=== PATIENT | male | born 1950 | race Caucasian/White ===

== ENCOUNTER → 2016-10-10 | Outpatient (CLI) | payer MEDICARE, MEDICAID ==
[2016-03-12 13:15] VITALS: BP 184/86
[~2016-10-10] MED LIST: ASPI-630 PO; ASPI325T70 PO; BACL10TA PO; BUDE10.2 IH; CARI350T PO; CIPR500T94 PO; DONE5TAB7 PO; ESOM20CA PO; FLUT1DIS3 IH; HYDR-2161 PO; LAMO200T PO; LAMO5TB.2 PO; LEVO50TA5 PO; LORA0.5T PO; LOSA100T6 PO; LOSA1TAB16 PO; NEBI10TA3 PO; ONDA4TAB10 PO; OXYC1TAB9 PO; SIMV20TA3 PO; TAMS0.4C97 PO; VENL75CA PO; ZOLP5TAB5 PO
[2016-10-10 10:40] LABS: ALBUMIN 3.7 g/dL (3.4-5.0); ALBUMIN/GLOBULIN RATIO 0.8 (1.0-1.7); CALCIUM 9.2 mg/dL (8.5-10.1); CREATININE 1.4 mg/dL (0.7-1.3); GFR 50.7; POTASSIUM 4.4 mmol/L (3.5-5.1); TOTAL BILIRUBIN 0.4 mg/dL (0.2-1.0); TOTAL PROTEIN 8.2 g/dL (6.4-8.2)
== END | disposition home or self-care (01) ==
LOC: LAB 09:52
PROVIDERS: ATTEND Nurse Practitioner
DX: E78.5 Hyperlipidemia, unspecified (principal)
CPT/HCPCS: 36415; 80053; 80061

== ENCOUNTER 2016-11-01 03:37 | Observation (INO) | payer MEDICARE, OTHER ==
[~2016-11-01] VITALS: Ht 170.2 cm; Wt 88.1 kg
[2016-11-01] MEDS ORDERED: 0.9 % SODIUM CHLORIDE 10 ML DISP.SYRIN. IV PRN (03:45)
[2016-11-01] MEDS: HYDROmorphone PF 1 MG/ML DISP.SYRIN IV/SQ PRN ×2 (03:50→04:50)
--- NOTE | 2016-11-01 03:53 | PHYS DOC ---
Past History Past Medical History: CAD, Constipation, Coagulopathy, High Cholesterol, Hypertension, Other Past Surgical History: Cholecystectomy, Other Smoking: Greater than 1 pack/day Alcohol Use: None Drug Use: None Adult General Chief Complaint Chief Complaint: chest pain [facility] HPI Patient is a pleasant 66-year-old male with history of heart disease, prior pacemaker placement, hypertension, hyperlipidemia, hiatal hernia, esophageal reflux, and questionable hx of diabetes who presents with chest pain that began 8 PM yesterday. Patient's chest pain began while at rest about 8 hours prior to arrival patient's chest pain is intermittent giving his chest pressure on the left chest with no radiation to the neck shoulder back. He denies any shortness of breath, denies any nausea, denies any vomiting, denies any fevers, chills, URI symptoms or other complaints. The chest pain is worse with exertion but is improved with nitroglycerin and aspirin. He received both of those in route by EMS prior to arrival. Chest pain initially was 8 out of 10 is presently a 6 out of 10 with nitroglycerin and aspirin in route. Patient denies any trauma, travel , recent antibiotics, he has had a series of chest pain like this in the past and was told that it was because his pacemaker was not functioning well. He actually was the pacemaker removed because he believes is part of his problem. Patient is somewhat upset and angry and has been seen by EMS earlier this week for similar presentations but denied transportation to the hospital. The symptoms seem to be increasing in frequency and duration. Patient is somewhat of a difficult historian. Differential diagnosis for chest pain: Pericarditis, myocarditis, endocarditis, pneumothorax, pneumonia, aortic dissection, esophageal spasm, esophagitis, peptic ulcer disease, acute coronary syndrome, mediastinitis, Boerhaave syndrome , musculoskeletal chest wall pain, costochondritis, intercostal strain, rib fracture, pulmonary contusion, pneumonitis, pleural effusion, pericardial effusion, pericardial tamponode, and pleurisy. On arrival given his history patient live in EKG, chest x-ray, appropriate cardiac workup completed. Review of Systems Review of Systems Constitutional: Denies fever or chills [] Eyes: Denies change in visual acuity, redness, or eye pain [] HENT: Denies nasal congestion or sore throat [] Respiratory: Denies cough or shortness of breath [] Cardiovascular: No additional information not addressed in HPI [] GI: Denies abdominal pain, nausea, vomiting, bloody stools or diarrhea [] : Denies dysuria or hematuria [] Musculoskeletal: Denies back pain or joint pain [] Integument: Denies rash or skin lesions [] Neurologic: Denies headache, focal weakness or sensory changes [] Endocrine: Denies polyuria or polydipsia [] Current Medications Current Medications Current Medications Medications (Trade) Dose Ordered Sig/Linsey Start Time Stop Time Status Last Admin Dose Admin Hydromorphone HCl (Dilaudid) 1 mg PRN Q15MIN PRN 11/01/16 03:45 11/02/16 03:44 UNV Lorazepam (Ativan) 1 mg 1X ONCE 11/01/16 03:45 11/01/16 03:46 UNV Sodium Chloride (Normal Saline Flush) 10 ml QSHIFT PRN 11/01/16 03:45 UNV Allergies Allergies Allergies Coded Allergies Type Severity Reaction Last Updated Verified prednisone Allergy Intermediate "Goes crazy." 09/22/13 Yes lisinopril Adverse Reaction Intermediate COUGH 11/13/15 Yes Physical Exam Physical Exam Impression vital signs are reviewed hypertension noted Constitutional: Mildly obese male nontoxic nondiaphoretic mildly tachypnea but grabbing his chest wall complaining of chest pain underneath her left breast. HENT: Normocephalic, atraumatic, bilateral external ears normal, dry mucous membranes with no oral exudates. Eyes: PERRLA, EOMI, conjunctiva normal, no discharge. [] Neck: Normal range of motion, no tenderness, supple, no stridor. [] Cardiovascular:Heart rate regular rhythm, no murmur [] Lungs & Thorax: Bilateral breath sounds clear to auscultation [] Abdomen: Bowel sounds normal, soft, no tenderness, no masses, no pulsatile masses. [] Skin: Warm, dry, no erythema, no rash. [] Back: No tenderness, no CVA tenderness. [] Extremities: No tenderness, no cyanosis, no clubbing, ROM intact, no edema. [] Neurologic: Alert and oriented X 3, normal motor function, normal sensory function, no focal deficits noted. [] Psychologic: He seems somewhat angry and upset patient very limited historian Current Patient Data Vital Signs Vital Signs Date Time Temp Pulse Resp B/P (MAP) Pulse Ox O2 Delivery O2 Flow Rate FiO2 6/8/17 04:08 61 18 137/69 (91) 96 Room Air 11/01/16 03:37 97.9 EKG EKG EKG timed 3:44 AM 11/01/2016 demonstrates a heart rate of 68 normal sinus rhythm with left axis deviation patient has a Q-wave in the anterior leads and leads V1 and V2 no ST segment elevation consistent with acute coronary event. By Dr. Lozano. [] Radiology/Procedures Radiology/Procedures [] Chest x-ray timed 0 3:41 AM 11/01/2016 demonstrates mild cardiomegaly pacemaker placement intact lead wires into his heart. There is mild elevation of the right hemidiaphragm no evidence of pleural effusion or infiltrate, pneumothorax. Chest x-ray read by Dr. Lozano Course & Med Decision Making Course & Med Decision Making Pertinent Labs and Imaging studies reviewed. (See chart for details) Upon arrival chest pain differential and workup was initiated approximately 3: 44 AM. Patient was given nitrates and aspirin prior to arrival given Dilaudid and Ativan and fluids here with antiemetics. 4:15 AM patient feels markedly better now more calm or history is being provided by at the bedside. She admits he has had a history of chest pain like this in the past was seen at 2 AM yesterday for similar presentation but declined coming in. Pain is become more frequent and more severe It is improved with nitrates and aspirin, Zofran, Dilaudid and Ativan. 4:23 AM patient's troponin is 0.0017, white blood cell count is mildly elevated 11,000 chest x-ray is back demonstrate a no occult infiltrate no cardiomegaly no obvious signs of congestive heart failure. EKG timed and dated earlier this morning was reviewed no cold changes Q waves in [place] but noted a prior EKG. 4:33 AM patient admitted to the hospital for rule out [place] protocol as he did not want to [facility]. I think he is low enough risk that he can stay here to be seen by her wellness instructor in the morning provided he does not have an elevated troponin it is on the MOHS SURGEON this time. We will attempt to keep patient pain free using antianxiety medications, nitrates and morphine derivatives and fluids. Patient's family members at the bedside are agreeable with this plan. Differential diagnosis for chest pain: Pericarditis, myocarditis, endocarditis, pneumothorax, pneumonia, aortic dissection, esophageal spasm, esophagitis, peptic ulcer disease, acute coronary syndrome, mediastinitis, Boerhaave syndrome , musculoskeletal chest wall pain, costochondritis, intercostal strain, rib fracture, pulmonary contusion, pneumonitis, pleural effusion, pericardial effusion, pericardial tamponode, and pleurisy. Was considered during the evaluation of this patient Impression: Chest pain of unclear etiology, anxiety, dementia Disposition: Admission to the hospital internal medicine evaluation as well as cardiology evaluation. [] Dragon Disclaimer Dragon Disclaimer This chart was dictated in whole or in part using Voice Recognition software in a busy, high-work load, and often noisy Emergency Department environment. It may contain unintended and wholly unrecognized errors or omissions. Departure Departure: Impression: Primary Impression: Chest pain Additional Impressions: Hypertension History of pacemaker Disposition: ADMITTED INPATIENT Admitting Physician: Shagufta Lopez Condition: GUARDED Referrals: DINAH MULLEN MD (PCP) Problem Qualifiers JACQUELYN LOZANO MD Nov 01, 2016 03:53
--- NOTE | 2016-11-01 04:06 | EKG ---
[address] [address] Test Date: 2016-11-01 Test Time: 03:44:10 Pat Name: [facility] Department: Room: Gender: M Title Investigator: : 1950 Requested By: JACQUELYN LOZANO Order Number: [id number] Reading MD: Andrea Olivas Measurements Intervals [place] Rate: 68 P: 46 ND: 170 QRS: -12 QRSD: 96 T: 62 QT: 398 QTc: 428 Interpretive Statements SINUS RHYTHM ANTEROSEPTAL INFARCT - PRIOR Electronically Signed On 11-06-2016 8:22:00 CDT by Andrea Olivas
[2016-11-01 04:08] LABS: BASO # 0.1 x10^3/uL (0.0-0.2); BASO % 1 % (0-3); EOS # 0.3 x10^3/uL (0.0-0.7); EOS % 3 % (0-3); HEMATOCRIT 38.7 % (39.0-53.0); HEMOGLOBIN 13.1 g/dL (13.0-17.5); LYMPH # 2.7 x10^3/uL (1.0-4.8); LYMPH % 24 % (24-48); MEAN CORPUSCULAR HEMOGLOBIN 29 pg (25-35); MEAN CORPUSCULAR HGB CONC 34 g/dL (31-37); MEAN CORPUSCULAR VOLUME 86 fL (79-100); MONO # 0.9 x10^3/uL (0.0-1.1); MONO % 8 % (0-9); NEUT # 7.2 x10^3uL (1.8-7.7); NEUT % 65 % (31-73); PLATELET COUNT 198 x10^3/uL (140-400); RED BLOOD COUNT 4.51 x10^6/uL (4.30-5.70); RED CELL DISTRIBUTION WIDTH 13.2 % (11.5-14.5); WHITE BLOOD COUNT 11.1 x10^3/uL (4.0-11.0)
[2016-11-01] MEDS ORDERED: LORazepam 2 MG/ML VIAL IV ONE (04:15)
[2016-11-01] MEDS ORDERED: IV NORMAL SALINE 1,000ML 1,000 ML IV SCH ×2 (04:15→04:29)
[2016-11-01 04:23] LABS: ALBUMIN 3.3 g/dL (3.4-5.0); ALBUMIN/GLOBULIN RATIO 0.8 (1.0-1.7); CALCIUM 8.8 mg/dL (8.5-10.1); CREATININE 1.2 mg/dL (0.7-1.3); GFR 60.6; MAGNESIUM 1.9 mg/dL (1.8-2.4); POTASSIUM 3.4 mmol/L (3.5-5.1); TOTAL BILIRUBIN 0.2 mg/dL (0.2-1.0); TOTAL PROTEIN 7.3 g/dL (6.4-8.2)
[2016-11-01] MEDS ORDERED: ONDANSETRON PF 4 MG/2 ML VIAL. IV PRN (04:30)
[2016-11-01] MEDS ORDERED: HYDROmorphone PF 1 MG/ML DISP.SYRIN IV PRN (04:30)
[2016-11-01] MEDS ORDERED: ACETAMINOPHEN 325 MG TABLET PO PRN (04:30)
[2016-11-01] MEDS ORDERED: NITROGLYCERIN SUBLINGUAL 0.4 MG BOTTLE OF 25. SL PRN (04:30)
--- NOTE | 2016-11-01 05:05 | ACF ---
Admission Criteria Forms CHEST PAIN Clinical Indications for Admission to Inpatient Care (Place 'X' for any and all applicable criteria): Admission is indicated for chest pain and ANY ONE of the following(1)(2)(3)(4)(5 ): [ ]I. Angina with acute coronary syndrome (Also use Myocardial Infarction or Angina guideline) [ ]II. Hemodynamic instability [ ]III. Angina needing acute intervention as indicated by ALL of the following( 11)(12): [ ]a) Unstable angina is present as indicated by angina that is ANY ONE of the following: [ ]i) New onset [ ]ii) Nocturnal [ ]iii) Prolonged at rest [ ]iv) Progressive [ ]b) Angina warrants acute intervention as indicated by ANY ONE of the following: [ ]i) Recurrent angina (e.g, not responding as previously to treatment) [ ]ii) Angina at rest or with low-level activities despite initial medical therapy [ ]iii) New or presumably new ST-segment depression on ECG [ ]iv) Signs or symptoms of heart failure (eg, dyspnea, pulmonary edema) [ ]v) New or worsening mitral regurgitation [ ]vi) Hemodynamic instability [ ]vii) Dangerous arrhythmia (eg, sustained ventricular tachycardia) [ ]viii) History of percutaneous coronary intervention within 6 months [ ]ix) History of coronary artery bypass graft surgery [ ]x) JOCELYNE risk score of 2 or greater[A] [ ]xi) History of Diabetes(14) [ ]xii) High-risk cardiac ischemia findings on noninvasive testing (e.g, echocardiogram, treadmill testing, nuclear scan) [ ]xiii) Chronic renal insufficiency (ie, estimated GFR less than 60 mL/min/1.732m) [ ]xiv) Left ventricular ejection fraction less than 40% [ ]IV. Evidence of OK (eg, cardiac biomarkers positive, ST-segment elevation on ECG) also use Myocardial Infarction Criteria Form. [ ]V. Pulmonary edema [ ]. Respiratory distress [ ]VII. Chest pain indicative of serious diagnosis other than coronary artery disease (eg, aortic dissection) [ ]VIII. Contraindications and/or Inappropriate clinical situations for Observational Care in patients with Chest Pain, when ANY ONE of the following is required: [ ]a) Patient with risk factor for pulmonary embolism, acute coronary syndrome and myocardial infarction (18) [ ]b) Patient with Pulmonary embolism require an average LOS of 4.3 days, therefore emergency department observation management is inappropriate 18,23 [ ]c) Painful condition/s in the elderly, have the highest rate of recidivism after emergency department observation management (10.8%) 20,21,22 [ ]d) Elevated cardiac biomarker requires intensive and exhaustive care (19) [ ]IX. General contraindications and/or Inappropriate clinical situations for Observational Care in patients with Chest Pain, when ANY ONE of the following is required: [ ]a) Prediction of prolongation of LOS based on ANY ONE of the following may be considered as a contraindication for observational care 2, 3, 4, 5, 6, 7, 8, 9, 10, 11 [ ]i) Age > 65 yrs. [ ]ii) Patient arriving by ambulance [ ]iii) Patient with high acuity [ ]iv) Patient requiring vital sign monitoring [ ]v) Patient on IV medication [ ]b) Systolic blood pressures 180mmHg 3,12 [ ]c) Patient with altered mental status including delirium and other alteration of consciousness, (3) [ ]d) Patient whose discharge disposition will be to a senior care home or rehabilitation home should not be managed in Emergency Department Observation Unit. CMS rule requires 3 days hospital stay before such placement. 3,13 [ ]e) Patient with failure to thrive due to broad array of etiologies 3,16,17 [ ]f) Inability to ambulate 3,14 Extended stay beyond goal length of stay may be needed for (1)(28): [ ]a) Specific condition diagnosed after evaluation (eg, pulmonary embolism, aortic dissection) [ ]b) Unstable angina [ ]c) Continued suspicion of acute coronary syndrome with inability to complete needed cardiac evaluation (eg, patient clinically unable to undergo stress testing) [ ]d) Myocardial infarction (Contents from ANGINA and CHEST PAIN clinical indications for admission to inpatient care have been integrated in this form) The original [employer] content created by [employer] has been revised. The portions of the content which have been revised are identified through the use of italic text or in bold, and [employer] has neither reviewed nor approved the modified material. All other unmodified content is copyright [employer]. Please see references footnoted in the original [employer] edition 2016 SIMON JOHNSON Nov 01, 2016 05:05
[2016-11-01 05:38] VITALS: BP 151/69
--- NOTE | 2016-11-01 08:03 | ACF ---
Admission Criteria Forms PAIN MANAGEMENT GR Clinical Indications for Admission to Inpatient Care (Place 'X' for any and all applicable criteria): Hospital admission is needed for appropriate care of the patient because of 1 or more of the following are present (1)(2)(3)(4)(5): [X]I. Severe pain requiring acute inpatient management as indicated by 1 or more of the following (2)(5)(10): [X]a) Continuous or frequent (eg, every 2 to 4 hours) parenteral analgesics required [A] [ ]b) Necessity (ie, alternative approaches not effective) for analgesic regimen that can only be performed or initiated in inpatient setting [ ]II. Pain causing debilitation to the point of inability to function or be supported at any other level of care [ ]III. Severe side effects from pain medications as indicated by ANY ONE of the following (12)(13)(14)(15): [ ]a) Uncontrollable seizures [ ]b) Cardiac arrhythmias of immediate concern [ ]c) Dehydration that is severe or persistent [ ]d) Vomiting that is severe or persistent [ ]e) Altered mental status that is severe or persistent [ ]f) Obstipation with inadequate GI function to maintain nutrition The original [employer] content created by [employer] has been revised. The portions of the content which have been revised are identified through the use of italic text or in bold, and [employer] has neither reviewed nor approved the modified material. All other unmodified content is copyright [employer]. Please see references footnoted in the original [employer] edition 2016 Admission Criteria Met?: Yes SIMON JOHNSON Nov 01, 2016 08:03
--- NOTE | 2016-11-01 08:18 | RAD ---
Portable chest, 11/01/2016: History: Chest pain, shortness of breath Comparison is made to a study from 03/19/2016. The left-sided transvenous pacemaker remains in place with 2 leads extending in the right heart. Spinal stimulator leads extend into the thoracic spinal canal. The heart size and pulmonary vascularity are normal. The lungs are clear. There is no evidence of pleural fluid. IMPRESSION: No acute cardiopulmonary abnormality is detected.
--- NOTE | 2016-11-01 09:50 | PDOC2 ---
JANNETH MONTES DE OCA PRINCIPAL LIBRARIAN 11/01/16 0949: CONSULT Date of Admission DATE: 11/01/16 TIME: 09:33 Reason for Consult: Chest pain Problem List Problems Medical Problems: (1) Chest pain Status: Acute (2) History of pacemaker Status: Acute (3) Hypertension Status: Acute History of Present Illness This is a pleasant 66 year old white male that presented to the ER with chief complaint of chest pain. He is known to our service. He has a history of sick sinus syndrome status post dual chamber pacemaker on 07/28/2013, small vessel coronary artery disease, hypertension, previous strokes, hyperlipidemia, moderate carotid artery disease, gastroesophageal reflux disease, and tobacco abuse. Pain started two nights ago at 8pm when he became frustrated with [place] home monitor not working. Has been constant since that time with different levels of intensity. Not related to activity and he is unsure what makes it better or worse. Associated with tenderness at area, soa but no nausea, vomiting or diaphoresis. When he present to er BP was 210 systolic and he can not remember if he missed his medication. He did try Nitro at home on two different occasions but did not think it helped. ROS - Review of 10 organ systems is negative except as above Allergies PREDNISONE: Other (Severe) Medications Advair Diskus 250 mcg-50 mcg/dose powder for inhalationone puff twice daily aspirin 81 mg tablet,delayed releaseTake 1 tablet(s) every day by oral route., start 03/27/2016 Atorvastatin 80 mg tabletone tablet by mouth daily at bedtime Bystolic 10 mg tabletTake 1 tablet(s) every day by oral route. Chantix 1 mg tabletTake 1 tablet(s) twice a day by oral route. clopidogrel 75 mg tabletone tablet by mouth daily diazePAM 10 mg tablet irbesartan 300 mg tabletTake 1 tablet(s) every day by oral route. lamoTRIgine 200 mg tabletone tablet by mouth daily nitroglycerin 0.4 mg sublingual tablet as needed for chest pain omeprazole 40 mg capsule,delayed release oxyCODONE 5 mg tablet1 1/2 tabs daily prochlorperazine maleate 10 mg tablet Ranexa 500 mg tablet,extended releaseone tablet by mouth twice daily Soma 350 mg tabletTake 1 tablet(s) 4 times a day by oral route. Symbicort 160 mcg-4.5 mcg/actuation HFA aerosol inhalertwice daily tamsulosin 0.4 mg capsule2 capsules once daily venlafaxine ER 75 mg capsule,extended release 24 hrone tablet by mouth daily Zetia 10 mg tabletTAKE ONE TABLET BY MOUTH ONCE A DAY. zolpidem 10 mg tabletTake 1 tablet(s) every day by oral route at bedtime for 30 days. Family History Father - Cirrhosis of liver ( age: 61) - Atherosclerosis Mother - Myocardial infarction ( age: 82) Social History Reviewed Social History Cardiology Occupation: Disabled Marital status: Exercise level: Moderate (Notes: [facility] for physical therapy) Smoking Status: Former smoker Smoker (05/30 PPD) Tobacco-years of use: 50 Alcohol intake: None Medical/Surgical History Carotid Disease: Y Coronary Artery Disease: Y High Cholesterol: Y Hypertension: Y Pacemaker: Y Chronic Kidney Disease: Y TIA/Stroke: Y Physical Exam Patient is a 66-year-old male. GENERAL: This is a well developed, well nourished male. No apparent distress. SKIN: Warm and dry with normal skin turgor. Negative for pallor. No lesions or rashes noted. EYES: Conjunctiva are clear. Extraocular movements are intact. No xanthelasma. HEAD AND NECK: Oral mucosa is moist. There is no cyanosis. Neck is supple. Jugular venous pressure is flat. Carotid pulses are 2/2 bilaterally. No carotid bruits. There is no obvious thyromegaly. HEART: Regular rate and rhythm. Normal S1 and S2. No S3. No S4. No significant murmur. No rub. PMI is not displaced. LUNGS: Effort is good. There is symmetric expansion bilaterally. Clear to auscultation bilaterally. No wheezes. No crackles. No rhonchi. ABDOMEN: Normal active bowel sounds. Soft. Nontender. EXTREMITIES: No clubbing. No cyanosis. No edema of lower extremities. Palpable pedal pulses. MUSCULOSKELETAL: No kyphosis. No scoliosis. No localized tenderness or stiffness. Gait appears normal. NEUROLOGIC: Alert and oriented times three. Cranial nerves III-XII are grossly intact. Good motor tone and strength in the upper and lower extremities bilaterally. PSYCHOLOGIC: This is a pleasant patient with a normal affect. Procedure Documentation CARDIAC CATHETERIZATION IMPRESSION (09/27/2015): 1. Small diffusely diseased coronaries without any focal stenosis of severity other than in the small nondominant right ventricular branch. 2. Elevated left ventricular end-diastolic pressures. 3. Systemic hypertension. ECHOCARDIOGRAM IMPRESSION (09/27/2015): There is normal left ventricular systolic function. The estimated ejection fraction is 60-65%. There is borderline concentric hypertrophy. There is trace mitral regurgitation. There is trace to mild tricuspid regurgitation. The pulmonary artery pressure is estimated at 25 mmHg. ULTRASOUND CAROTID DUPLEX DOPPLER (09/26/2015): 50-69% stenosis of the right distal common carotid artery prior to the bulb due to intimal thickening and mixed plaque. No other hemodynamically significant stenosis with less than 50% stenosis in the other carotid arteries. NUCLEAR STRESS TEST IMPRESSION (10/08/2014): Normal myocardial perfusion scan. Normal left ventricular systolic function. Ejection fraction: 55%. There is no stress induced left ventricular dilatation or increase in lung to heart ratio. There were no significant stress induced ECG changes. There were no arrhythmias. There was chest pressure during Lexiscan injection. ECHOCARDIOGRAM IMPRESSION (10/08/2014): There is mild concentric left ventricular hypertrophy. The left ventricular systolic function is normal with an estimated ejection fraction of 74%. There is evidence of decreased diastolic compliance of the left ventricle consistent with mild diastolic dysfunction. The inferior vena cava is dilated but does respond normally to respiration, which is consistent with mildly elevated right atrial pressure. There is mild to moderate mitral regurgitation There is moderate tricuspid regurgitation. The estimated pulmonary artery systolic pressure is 43 mmHg, consistent with mild pulmonary hypertension. 30 DAY EVENT RECORDER (07/16/2013): 1. The patient has sick sinus syndrome. He had a 3.7-second pause at 1:30 p.m. on July 11, 2013. 2. Because of his recurrent syncopal episodes, the patient qualifies for a permanent pacemaker placement. 3. This was discussed with Dr. Elaine Edouard, his primary brim plater and he will schedule this procedure. Assessment / Plan Chest pain - 1st troponin is negative. If his next comes back negative can discharge home for OP stress test and echocardiogram. His pain is atypical and he had a catheterization in 09/2015 that showed small vessel disease without any significant stenosis. Will add lidocaine patch and continue PPI Coronary artery disease - He has small vessel coronary disease by cardiac catheterization 09/2015. Continue aspirin, beta patrick, Ranexa and statin. We will continue optimal medical therapy. Benign Essential Hypertension, uncontrolled. Improving with resuming his home medication. Hypercholesterolemia . His goal LDL is < 100 mg/dL. Continue Zetia and Lipitor. Sick sinus syndrome, status post pacemaker. PM rep is coming to fix [place] home monitoring box and will check his pacemaker Carotid disease, right: He has a carotid bruit and has mild to moderate carotid plaquing by sonogram 09/2015. He is on a statin. 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 GFR now 60 - Stop fluids Previous stroke: He had left arm weakness an hour after his cardiac catheterization. He received TPA with some improvement in his weakness. Continue Plavix Current Medications Current Medications Lorazepam (Ativan) 1 mg 1X ONCE IV Last administered on 11/01/16 03:50; Start 11/01/16 at 04:15; Stop 11/01/16 at 04:16; Status DC Hydromorphone HCl (Dilaudid) 1 mg PRN Q15MIN PRN IV/SQ PAIN GREATER THAN 3/10 Last administered on 11/01/16 04:50; Start 11/01/16 at 03:45; Stop 11/02/16 at 03: 44 Sodium Chloride 1,000 ml @ 1,000 mls/hr Q1H IV Last administered on 11/01/16 03:50; Start 11/01/16 at 04:15; Stop 11/01/16 at 05:14; Status DC Sodium Chloride (Normal Saline Flush) 10 ml QSHIFT PRN IV AFTER MEDS AND BLOOD DRAWS Last administered on 11/01/16 03:45; Start 11/01/16 at 03:45 Ondansetron HCl (Zofran) 4 mg PRN Q4HRS PRN IV NAUSEA/VOMITING Last administered on 11/01/16 05:20; Start 11/01/16 at 04:30; Stop 11/02/16 at 04:29 Sodium Chloride 1,000 ml @ 100 mls/hr Q10H IV Last administered on 11/01/16 05 :22; Start 11/01/16 at 04:29; Stop 11/02/16 at 04:28 Acetaminophen (Tylenol) 650 mg PRN Q4HRS PRN PO FEVER; Start 11/01/16 at 04:30; Stop 11/02/16 at 04:29 Nitroglycerin (Nitrostat) 0.4 mg PRN Q5MIN PRN SL CHEST PAIN; Start 11/01/16 at 04:30; Stop 11/02/16 at 04:29 Hydromorphone HCl (Dilaudid) 1 mg PRN Q2HR PRN IV SEVERE PAIN; Start 11/01/16 at 04:30; Stop 11/02/16 at 04:29 Active Scripts Active Cipro (Ciprofloxacin Hcl) 500 Mg Tablet 1 Tab PO BID Flomax (Tamsulosin Hcl) 0.4 Mg Cap.er.24h 1 Cap PO DAILY Reported Baclofen 10 Mg Tablet 10 Mg PO TID Losartan-Hctz 50-12.5 Mg Tab (Losartan/Hydrochlorothiazide) 1 Each Tablet 1 Each PO DAILY Losartan-Hctz 50-12.5 Mg Tab (Losartan/Hydrochlorothiazide) 1 Each Tablet 1 Each PO Advair 250-50 Diskus (Fluticasone/Salmeterol) 1 Each Disk.w.dev 1 Each IH BID Symbicort 160-4.5 Mcg Inhaler (Budesonide/Formoterol Fumarate) 10.2 Gm Hfa.aer.ad 2 Puff IH BID Zofran Odt (Ondansetron) 4 Mg Tab.rapdis 4 Mg PO PRN Oxycodone-Acetaminophen 10-325 (Oxycodone Hcl/Acetaminophen) 1 Each Tablet 1 Each PO PRN Lamotrigine 200 Mg Tablet 200 Mg PO DAILY Bystolic (Nebivolol Hcl) 10 Mg Tablet 10 Mg PO DAILY Nexium Capsule (Esomeprazole Magnesium) 20 Mg Capsule.dr 20 Mg PO BID Zolpidem Tartrate 5 Mg Tablet 5 Mg PO QHS PRN Donepezil Hcl 5 Mg Tablet 5 Mg PO DAILY Hydrocodone-Apap 10-300 (Hydrocodone Bit/Acetaminophen) 1 Each Tablet 1 Each PO Nexium Capsule (Esomeprazole Magnesium) 20 Mg Capsule.dr 20 Mg PO Aspirin Buffered 325 Mg Tab (Aspirin/Calcium Carbonate/Mag) 325 Mg Tablet 325 Mg PO Aspirin 81 Mg Tab.chew 81 Mg PO Soma (Carisoprodol) 350 Mg Tablet 350 Mg PO QID Simvastatin 20 Mg Tablet 40 Mg PO HS Levothyroxine Sodium 50 Mcg Tablet 25 Mcg PO DAILY Lorazepam 0.5 Mg Tablet 1 Mg PO TID Effexor Xr (Venlafaxine Hcl) 75 Mg Cap.er.24h 75 Mg PO DAILY Allergies: Coded Allergies: prednisone (Verified Allergy, Intermediate, "Goes crazy.", 09/22/13) lisinopril (Verified Adverse Reaction, Intermediate, COUGH, 11/13/15) VITALS Vital Signs Date Time Temp Pulse Resp B/P (MAP) Pulse Ox O2 Delivery O2 Flow Rate FiO2 11/01/16 06:21 20 Room Air 11/01/16 05:38 97.6 60 151/69 (96) 99 Labs Laboratory Tests Test 11/01/16 03:45 White Blood Count 11.1 x10^3/uL (4.0-11.0) Red Blood Count 4.51 x10^6/uL (4.30-5.70) Hemoglobin 13.1 g/dL (13.0-17.5) Hematocrit 38.7 % (39.0-53.0) Mean Corpuscular Volume 86 fL (79-100) Mean Corpuscular Hemoglobin 29 pg (25-35) Mean Corpuscular Hemoglobin Concent 34 g/dL (31-37) Red Cell Distribution Width 13.2 % (11.5-14.5) Platelet Count 198 x10^3/uL (140-400) Neutrophils (%) (Auto) 65 % (31-73) Lymphocytes (%) (Auto) 24 % (24-48) Monocytes (%) (Auto) 8 % (0-9) Eosinophils (%) (Auto) 3 % (0-3) Basophils (%) (Auto) 1 % (0-3) Neutrophils # (Auto) 7.2 x10^3uL (1.8-7.7) Lymphocytes # (Auto) 2.7 x10^3/uL (1.0-4.8) Monocytes # (Auto) 0.9 x10^3/uL (0.0-1.1) Eosinophils # (Auto) 0.3 x10^3/uL (0.0-0.7) Basophils # (Auto) 0.1 x10^3/uL (0.0-0.2) Sodium Level 141 mmol/L (136-145) Potassium Level 3.4 mmol/L (3.5-5.1) Chloride Level 105 mmol/L (98-107) Carbon Dioxide Level 28 mmol/L (21-32) Anion Gap 8 (6-14) Blood Urea Nitrogen 17 mg/dL (8-26) Creatinine 1.2 mg/dL (0.7-1.3) Estimated GFR (Cockcroft-Gault) 60.6 BUN/Creatinine Ratio 14 (6-20) Glucose Level 96 mg/dL (70-99) Calcium Level 8.8 mg/dL (8.5-10.1) Magnesium Level 1.9 mg/dL (1.8-2.4) Total Bilirubin 0.2 mg/dL (0.2-1.0) Aspartate Amino Transf (AST/SGOT) 23 U/L (15-37) Alanine Aminotransferase (ALT/SGPT) 31 U/L (16-63) Alkaline Phosphatase 199 U/L (46-116) Creatine Kinase 89 U/L (39-308) Creatine Kinase MB (Mass) 1.3 ng/mL (0.0-3.6) Creatine Kinase MB Relative Index 1.5 % (0-4) Troponin I Quantitative < 0.017 ng/mL (0-0.055) RR-Hhx-E-Type Natriuretic Peptide 616 pg/mL (0-124) Total Protein 7.3 g/dL (6.4-8.2) Albumin 3.3 g/dL (3.4-5.0) Albumin/Globulin Ratio 0.8 (1.0-1.7) Lipase 115 U/L (73-393) ELAINE EDOUARD Jr, MD 11/04/16 1151: CONSULT Allergies: Coded Allergies: prednisone (Verified Allergy, Intermediate, "Goes crazy.", 09/22/13) lisinopril (Verified Adverse Reaction, Intermediate, COUGH, 11/13/15) Assessment/Plan The patient was seen by Janneth Montes De Oca APRN and I have reviewed her findings and plan and agree with above. Due to staffing constraints, we did not have an attending available on this day to see the patient. Problems: JANNETH MONTES DE OCA APRN Nov 01, 2016 09:49 ELAINE EDOUARD Jr, MD Nov 04, 2016 11:51
[2016-11-01] MEDS ORDERED: PANTOPRAZOLE 40 MG TABLET. PO SCH (10:00)
[2016-11-01] MEDS: LIDOCAINE (700MG/PATCH) PATCH. TD SCH ×2 (10:00→10:03)
[2016-11-01] MEDS ORDERED: CLOP75TA PO (10:29)
[2016-11-01] MEDS ORDERED: VARE1TAB20 PO (10:29)
[2016-11-01] MEDS ORDERED: RANO500T2 PO (10:33)
[2016-11-01] MEDS ORDERED: PROC10TA PO (10:33)
[2016-11-01] MEDS ORDERED: FLUT1DIS3 IH (10:33)
[2016-11-01] MEDS ORDERED: EZET10TA18 PO (10:33)
[2016-11-01] MEDS ORDERED: NITR0.4T SL (10:33)
[2016-11-01] MEDS ORDERED: DIAZ10TA4 PO (10:33)
[2016-11-01 11:37] VITALS: BP 187/90
== END 2016-11-01 12:20 | disposition left against medical advice (07) ==
LOC: ER 03:37 → 1 SOUTH 04:29
PROVIDERS: ADMIT Internal Medicine; ATTEND Internal Medicine
DX: R07.89 Other chest pain (principal); I25.10 Atherosclerotic heart disease of native coronary artery without angina pectoris; E78.00 Pure hypercholesterolemia, unspecified; E78.5 Hyperlipidemia, unspecified; I65.29 Occlusion and stenosis of unspecified carotid artery; K21.9 Gastro-esophageal reflux disease without esophagitis; F17.210 Nicotine dependence, cigarettes, uncomplicated; F41.9 Anxiety disorder, unspecified; F03.90 Unspecified dementia, unspecified severity, without behavioral disturbance, psychotic disturbance, mood disturbance, and anxiety; I12.9 Hypertensive chronic kidney disease with stage 1 through stage 4 chronic kidney disease, or unspecified chronic kidney disease; N18.3 Chronic kidney disease, stage 3 (moderate); Z95.0 Presence of cardiac pacemaker; Z79.01 Long term (current) use of anticoagulants; Z79.899 Other long term (current) drug therapy; Z86.73 Personal history of transient ischemic attack (TIA), and cerebral infarction without residual deficits; Z82.49 Family history of ischemic heart disease and other diseases of the circulatory system
CPT/HCPCS: 36415; 71010; 80053; 82553; 83690; 83735; 83880; 84443; 84484; 85027; 93005; 96361; 96374; 96375; 96376; 99285; G0378; J1170; J2060; J2405; J7030; G0379

== ENCOUNTER → 2017-05-10 | Outpatient (CLI) | payer MEDICARE, OTHER ==
[~2017-05-10] MED LIST changes: +CLOP75TA PO; +DIAZ10TA4 PO; +EZET10TA18 PO; -LAMO200T PO; +LAMO200T2 PO; -LOSA1TAB16 PO; +LOSA1TAB19 PO; +NITR0.4T SL; +PROC10TA PO; +RANO500T2 PO; +VARE1TAB20 PO
--- NOTE | 2017-05-10 10:47 | RAD ---
Complete abdominal ultrasound 05/10/2017 Indication: Abdominal pain. Cirrhosis. Comparison study: CT of the abdomen and pelvis May 11, 2017. Discussion: Ultrasound evaluation of the abdomen was performed. Static images were submitted to PACS. The pancreas is essentially not visualized secondary overlying gas-filled bowel. Visualized portions of the aorta and IVC are grossly unremarkable. Gallbladder is surgically absent. The liver is grossly normal in size measuring 15.7 cm longitudinally. Liver is mildly hyperechoic throughout suggesting some degree of hepatic steatosis. No focal hepatic lesions are identified. Common bile is nondilated measuring 4 mm. The right kidney is normal appearance measuring 12.0 cm in length. Spleen is top normal in size measuring 11.5 cm longitudinally. Left kidney is small in size measuring 9.1 cm in length. No ascites is identified. Portal venous flow appears to be in the normal direction. Impression: 1. Possible hepatic steatosis. 2. Atrophic appearance of the left kidney. Similar findings noted on prior CT scan.
== END | disposition home or self-care (01) ==
LOC: US 10:00
PROVIDERS: ATTEND Internal Medicine Gastroenterology
DX: K74.60 Unspecified cirrhosis of liver (principal); Z90.49 Acquired absence of other specified parts of digestive tract; Z87.891 Personal history of nicotine dependence
CPT/HCPCS: 76700

== ENCOUNTER 2017-09-12 16:15 | Emergency (ER) | payer MEDICARE, OTHER ==
[~2017-09-12] VITALS: Ht 170.2 cm; Wt 82.1 kg
--- NOTE | 2017-09-12 17:22 | EKG ---
[address] [address] Test Date: 2017-09-12 Test Time: 17:18:14 Pat Name: DEISY TURNER Department: Room: Gender: M Box Attacher: : 1950 Requested By: BEBO FLOYD Order Number: [id number] Reading MD: Measurements Intervals Justice Rate: 60 P: 0 CO: 214 QRS: -5 QRSD: 72 T: 30 QT: 402 QTc: 406 Interpretive Statements SINUS RHYTHM LEFTWARD AXIS NO SPECIFIC ECG ABNORMALITIES RI6.01 Compared to ECG 11/01/2016 03:44:10 Left-axis deviation now present Myocardial infarct finding no longer present
--- NOTE | 2017-09-12 17:46 | PHYS DOC ---
Past History Past Medical History: Anxiety, CAD, Constipation, Coagulopathy, GERD, High Cholesterol, Hypertension, Pneumonia, Stroke, Other Past Surgical History: Cholecystectomy, Pacemaker, Other Smoking: Greater than 1 pack/day Additional Smoking Information: QUIT 2 YEARS AGO. Alcohol Use: None Drug Use: None Adult General Chief Complaint Chief Complaint: PSYCH EVALUATION HPI HPI 67-year-old male patient brought in by his because of chronic abdominal pain and needs for psychiatric evaluation. Patient and his stated that he has had chronic abdominal pain for more than one year but he was able to figure out what's going on. Patient was seen by primary care physician because of psychiatric evaluation because he was not taking his medication and does not eat and drink for the last several days. Patient primary care physician states he had narcotic seeking abdominal pain previously. Patient denies suicidal and homicidal ideation. Review of Systems Review of Systems Constitutional: Denies fever or chills [] Eyes: Denies change in visual acuity, redness, or eye pain [] HENT: Denies nasal congestion or sore throat [] Respiratory: Denies cough or shortness of breath [] Cardiovascular: No additional information not addressed in HPI [] GI: Reports abdominal pain, nausea, denies vomiting, bloody stools or diarrhea [ ] : Denies dysuria or hematuria [] Musculoskeletal: Denies back pain or joint pain [] Integument: Denies rash or skin lesions [] Neurologic: Denies headache, focal weakness or sensory changes [] Endocrine: Denies polyuria or polydipsia [] All other systems were reviewed and found to be within normal limits, except as documented in this note. Allergies Allergies Allergies Coded Allergies Type Severity Reaction Last Updated Verified prednisone Allergy Intermediate "Goes crazy." 09/22/13 Yes lisinopril Adverse Reaction Intermediate COUGH 11/13/15 Yes Physical Exam Physical Exam Constitutional: Poor hygiene, no acute distress, non-toxic appearance. [] HENT: Normocephalic, atraumatic Eyes: PERRLA, EOMI, conjunctiva normal, no discharge. [] Neck: Normal range of motion, no tenderness, supple, no stridor. [] Cardiovascular:Heart rate regular rhythm, no murmur [] Lungs & Thorax: Bilateral breath sounds clear to auscultation [] Abdomen: Bowel sounds normal, soft, no tenderness, no masses, no pulsatile masses. [] Skin: Warm, dry, no erythema, no rash. [] Back: No tenderness, no CVA tenderness. [] Extremities: No tenderness, no cyanosis, no clubbing, ROM intact, no edema. [] Neurologic: Alert and oriented X 3, normal motor function, normal sensory function, no focal deficits noted. [] Psychologic: Affect normal, judgement normal, mood normal. [] Current Patient Data Vital Signs Vital Signs Date Time Temp Pulse Resp B/P (MAP) Pulse Ox O2 Delivery O2 Flow Rate FiO2 09/12/17 16:41 98.3 67 20 99 Room Air EKG EKG EKG interpreted by me. EKG at 1718 showed normal sinus rhythm at rate of 60, no acute ST and T wave abnormality, leftward axis,[] Radiology/Procedures Radiology/Procedures [] Course & Med Decision Making Course & Med Decision Making Pertinent Labs are pending. Patient care transferred to Dr. Young at 1800.[] ELIZA Huynh attending note Dr. Sunny KAY M.D. attending Note Dr. Sunny Young Care assumed by me at 6 PM to follow labs and results of tele-psychiatric evaluation and disposition patient. Laboratory workup unremarkable. Patient stable alert communicative. Patient had no evidence of abdominal pain and was walking around the emergency department in what appeared to be complete comfort physically. Multiple attempts were made to connect via tele-psychiatry however the equipment was not working. Patient and his became frustrated with this and decided they would just leave and follow-up with their doctor. Apparently at some point a nurse had gotten the impression that the patient was expressing some suicidal thoughts, and when the couple wished to leave I discussed this with them. They were very clear that he has not had any recent suicidal thoughts whatsoever and they mention that the nurse asked him "have you ever had such thoughts ?" In the distant past he had, which he mentioned, and it appears that as a result staff at the impression that patient was currently suicidal. The patient and his were abundantly clear that this is not the case in any way. I discussed the case with Dr. Phipps our Senior behavioral health psychiatrist. He was willing to accept the patient for admission to his service however the patient and his were unwilling to wait for the normal process of admission to take place so they insisted on leaving. There was no indication for an emergency psychiatric hold on this patient. Per he was at his mental status baseline, she was his POA, and they both wanted to leave. This was their decision and they were encouraged to return any time or down 911 if they feel there were any danger to self or others. ' Dragon Disclaimer Dragon Disclaimer This electronic medical record was generated, in whole or in part, using a voice recognition dictation system. Departure Departure: Impression: Primary Impression: Anxiety Additional Impressions: Noncompliance with medication regimen Chronic abdominal pain Left against medical advice Disposition: 07 AGAINST MEDICAL ADVICE Admitting Physician: Other Condition: STABLE Referrals: DINAH MULLEN MD (PCP) Problem Qualifiers BEBO FLOYD MD Sep 12, 2017 17:46 SUNNY YOUNG MD Sep 12, 2017 20:27
[2017-09-12 18:03] LABS: BASO # 0.1 x10^3/uL (0.0-0.2); BASO % 1 % (0-3); EOS # 0.1 x10^3/uL (0.0-0.7); EOS % 2 % (0-3); HEMATOCRIT 40.7 % (39.0-53.0); HEMOGLOBIN 14.2 g/dL (13.0-17.5); LYMPH # 1.5 x10^3/uL (1.0-4.8); LYMPH % 23 % (24-48); MEAN CORPUSCULAR HEMOGLOBIN 30 pg (25-35); MEAN CORPUSCULAR HGB CONC 35 g/dL (31-37); MEAN CORPUSCULAR VOLUME 87 fL (79-100); MONO # 0.5 x10^3/uL (0.0-1.1); MONO % 7 % (0-9); NEUT # 4.5 x10^3uL (1.8-7.7); NEUT % 67 % (31-73); PLATELET COUNT 265 x10^3/uL (140-400); RED BLOOD COUNT 4.69 x10^6/uL (4.30-5.70); RED CELL DISTRIBUTION WIDTH 13.1 % (11.5-14.5); WHITE BLOOD COUNT 6.8 x10^3/uL (4.0-11.0)
[2017-09-12 18:07] LABS: ALBUMIN 3.2 g/dL (3.4-5.0); ALBUMIN/GLOBULIN RATIO 0.7 (1.0-1.7); CALCIUM 9.3 mg/dL (8.5-10.1); CREATININE 1.2 mg/dL (0.7-1.3); GFR 60.4; MAGNESIUM 2.1 mg/dL (1.8-2.4); POTASSIUM 3.7 mmol/L (3.5-5.1); TOTAL BILIRUBIN 0.3 mg/dL (0.2-1.0); TOTAL PROTEIN 7.7 g/dL (6.4-8.2)
[2017-09-12 18:35] LABS: BACTERIA,URINE 0 /HPF (0-FEW); BILIRUBIN,URINE NEG (NEG); CLARITY,URINE CLEAR; COLOR,URINE STRAW; GLUCOSE,URINE NEG (NEG); NITRITE,URINE NEG (NEG); RBC,URINE 0 /HPF (0-2); SQUAMOUS EPITHELIAL CELL,UR FEW /LPF; UROBILINOGEN,URINE 0.2 mg/dL (0.2 mg/dL); WBC,URINE OCC /HPF (0-4)
[2017-09-12 20:20] VITALS: BP 146/80
[2017-09-12] MEDS ORDERED: LORazepam 1 MG TABLET PO ONE (20:30)
== END 2017-09-12 21:15 | disposition left against medical advice (07) ==
LOC: EEVIPCON 16:15 → ER 16:15
DX: F41.9 Anxiety disorder, unspecified (principal); G89.29 Other chronic pain; Z91.14 Patient's other noncompliance with medication regimen; I25.10 Atherosclerotic heart disease of native coronary artery without angina pectoris; K21.9 Gastro-esophageal reflux disease without esophagitis; E78.00 Pure hypercholesterolemia, unspecified; I10 Essential (primary) hypertension; Z86.73 Personal history of transient ischemic attack (TIA), and cerebral infarction without residual deficits; Z90.49 Acquired absence of other specified parts of digestive tract; Z95.0 Presence of cardiac pacemaker; Z87.891 Personal history of nicotine dependence; Z88.8 Allergy status to other drugs, medicaments and biological substances
CPT/HCPCS: 36415; 80053; 81001; 83690; 83735; 85025; 93005; 99285-25

== ENCOUNTER → 2018-02-06 | Outpatient (CLI) | payer MEDICARE, OTHER ==
[~2018-02-06] MED LIST changes: -LOSA100T6 PO; +LOSA100T7 PO; +OXYC-411 PO; -OXYC1TAB9 PO; -PROC10TA PO; +PROC10TA2 PO
--- NOTE | 2018-02-06 12:20 | RAD ---
PQRS Compliance Statement: One or more of the following individualized dose reduction techniques were utilized for this examination: 1. Automated exposure control 2. Adjustment of the mA and/or kV according to patient size 3. Use of iterative reconstruction technique CT lumbar spine without contrast February 06, 2018 INDICATION: Radiculopathy. COMPARISON: CT abdomen/pelvis July 12, 2016. TECHNIQUE: Multiple axial CT images of the lumbar spine were obtained without intravenous contrast. Coronal and sagittal reformats are provided. FINDINGS: There is grade 1 retrolisthesis of L1 on L2 and L2 on L3. There is grade 1 anterolisthesis of L4 on L5. There is mild disc height loss at all levels of lumbar spine. Vacuum disc phenomenon is identified at all levels of the lumbar spine. Posterior epidural spinal stimulator leads enter the posterior epidural space at T12-L1. There is moderate disc height loss at L5-S1 with endplate sclerosis and anterior marginal osteophytosis. Abdominal aorta is normal in caliber with moderate atherosclerotic changes. By iliac stent graft is visualized. Sacroiliac joints are well aligned. Sacrum appears intact. L1-L2: There is a mild disc bulge. There is mild facet arthropathy. There is moderate left and severe right neuroforaminal stenosis. There is mild spinal canal stenosis. L2-L3: There is a circumferential disc bulge. There is moderate facet arthropathy. There is moderate left and severe right neuroforaminal stenosis. There is mild spinal canal stenosis. L3-L4: There is a moderate circumferential disc bulge with a left far lateral disc protrusion. There is moderate facet arthropathy with ligamentum flavum infolding. There is moderate bilateral neuroforaminal stenosis. There is mild to moderate spinal canal stenosis. L4-L5: There is a left central disc extrusion extending cranially. There is a superimposed moderate circumferential disc bulge. There is moderate to severe facet arthropathy with ligamentum flavum infolding. There is moderate right and severe left neuroforaminal stenosis. There is moderate spinal canal stenosis. L5-S1: There is a moderate circumferential disc bulge with left central disc extrusion narrowing the left lateral recess. There is severe facet arthropathy, right greater than left. There is moderate to severe left and moderate right neuroforaminal stenosis. No spinal canal stenosis. IMPRESSION: Moderate degenerative changes of the lumbar spine, as described in detail above. Electronically signed by: Camilla Carter MD (02/06/2018 12:16 PM) [id number]
== END | disposition home or self-care (01) ==
LOC: CT 09:37
PROVIDERS: ATTEND Anesthesiology
DX: M47.896 Other spondylosis, lumbar region (principal); M48.07 Spinal stenosis, lumbosacral region; M48.061 Spinal stenosis, lumbar region without neurogenic claudication; M51.27 Other intervertebral disc displacement, lumbosacral region; M12.88 Other specific arthropathies, not elsewhere classified, other specified site; M51.26 Other intervertebral disc displacement, lumbar region; I12.9 Hypertensive chronic kidney disease with stage 1 through stage 4 chronic kidney disease, or unspecified chronic kidney disease; N18.3 Chronic kidney disease, stage 3 (moderate); K21.9 Gastro-esophageal reflux disease without esophagitis; E78.00 Pure hypercholesterolemia, unspecified; E03.9 Hypothyroidism, unspecified; J44.9 Chronic obstructive pulmonary disease, unspecified; I25.10 Atherosclerotic heart disease of native coronary artery without angina pectoris; Z95.0 Presence of cardiac pacemaker; Z86.73 Personal history of transient ischemic attack (TIA), and cerebral infarction without residual deficits; Z86.79 Personal history of other diseases of the circulatory system; Z87.891 Personal history of nicotine dependence; Z90.49 Acquired absence of other specified parts of digestive tract; Z88.8 Allergy status to other drugs, medicaments and biological substances; Z82.49 Family history of ischemic heart disease and other diseases of the circulatory system
CPT/HCPCS: 72131

== ENCOUNTER → 2018-03-28 | Outpatient (CLI) | payer OTHER ==
--- NOTE | 2018-03-28 12:53 | RAD ---
CT HEAD WITHOUT CONTRAST 03/28/2018 10:02 AM Indication: ALTERED MENTAL STATUS, STUTTERING Comparison: CT head without contrast March 12, 2016 Procedure: Multidetector CT imaging of the head was performed without the administration of contrast. Findings: No evidence of acute intracranial hemorrhage is identified. No evidence of interval subacute territorial infarct is identified. Note that CT is limited for evaluation of acute ischemia. If there is continued clinical concern for acute ischemia, MRI offers more sensitive evaluation. No acute mass effect or midline shift is seen. Diffuse atrophic changes are noted, similar to prior exam. There is right frontoparietal encephalomalacia consistent with prior infarct. The appearance is similar. Periventricular and deep white matter hypoattenuation consistent with chronic small vessel disease is similar to prior exam. No acute osseous changes are identified. IMPRESSION: No evidence of acute intracranial abnormality or acute change from prior study. CT DOSING PQRS STATEMENT: One or more of the following individualized dose reduction techniques were utilized for this examination: 1. Automated exposure control 2. Adjustment of the mA and/or kV according to patient size 3. Use of iterative reconstruction technique Electronically signed by: Enrique Francois MD (03/28/2018 12:51 PM) [facility]
== END | disposition home or self-care (01) ==
LOC: CT 09:51
DX: I73.89 Other specified peripheral vascular diseases (principal); G93.89 Other specified disorders of brain
CPT/HCPCS: 70450

== ENCOUNTER → 2018-08-19 | Outpatient (CLI) | payer OTHER ==
[~2018-08-19] MED LIST changes: +LOSA100T14 PO; -LOSA100T7 PO
--- NOTE | 2018-08-19 14:52 | RAD ---
Radionuclide bone scan, 08/19/2018: HISTORY: Elevated alk phosphatase, back pain Whole-body imaging was performed following IV injection of 22 mCi of technetium 99m MDP. Comparison is made to a study from 07/23/2014. The following findings are delineated: 1. Mildly increased activity at the wrists, both sternoclavicular joints and both shoulders is symmetric and likely arthritic in nature. 2. There is mildly increased activity in the lower lumbar spine bilaterally which is unchanged and likely due to facet joint arthropathy. 3. Activity of the radionuclide about the skeleton and major joints is otherwise unremarkable. No new osseous abnormality is seen. 4. Normal activity is present in both kidneys and the bladder. IMPRESSION: 1. Stable scattered arthritic changes as described above. 2. No new bone scan abnormality is detected. Electronically signed by: Hipolito Sadlana MD (08/19/2018 2:49 PM) [facility]
== END | disposition home or self-care (01) ==
LOC: NM 10:04
PROVIDERS: ATTEND Family Medicine
DX: M19.90 Unspecified osteoarthritis, unspecified site (principal); R74.8 Abnormal levels of other serum enzymes
CPT/HCPCS: 78306; 96374; A9503

== ENCOUNTER 2018-11-24 01:51 | Observation (INO) | payer OTHER ==
[2018-11-24] VITALS (7 sets, daily range): BP systolic 103–159; BP diastolic 54–81
[~2018-11-24] VITALS: Ht 170.2 cm; Wt 87.6 kg
--- NOTE | 2018-11-24 01:54 | ED.ADGEN ---
Past History Past Medical History: Anxiety, CAD, CHF, Constipation, COPD, Coagulopathy, Dementia, GERD, High Cholesterol, Hypertension, Pneumonia, Stroke, TIA, Other Past Surgical History: Cholecystectomy, Pacemaker, Other Smoking: Greater than 1 pack/day Alcohol Use: None Drug Use: None Adult General Chief Complaint Chief Complaint ".. I was up.... on... my walker.. I .. tripped... I fell.. .. I don't .. hurt bad.. . I fall... because ... of my stroke... my.. right si de....is....bad....".." I hit my head... hard.. my head hurts..my neck still hurts..." HPI HPI Patient is a 68 year old male from [place] [place] [facility] since 11/13/18 who presents with above hx and complaints of fall. Patient reportedly fell 6 PM yesterday and again at 1:00 this morning. Patient has a history of frequent falls. Patient complains of striking his head on last fall. Has tenderness on posterior scalp and in in cervical. Patient has history of previous TIAs and CVAs with both right-sided weakness, slurred speech as a sequela. Patient states he was using a walker night when he fell. Pt. admitted to [facility] for rehab., increased agitation, non-compliance and behavior prevent home care. Pt. hx of Dementia, anxiety, coronary artery disease, recurrent constipation, GERD, cholesterol, hyper tension, depression, TIAs, CVA, diabetic, deconditioning, COPD, coagulopathy, CHF, dysrhythmia, CADz, Pacer placement and pneumonia. Pt. had been living at home prior to placement in [facility]. Pt. follows with Dr. Plummer and Dr. Lopez. Review of Systems Review of Systems Constitutional: Denies fever or chills [] Eyes: Denies change in visual acuity, redness, or eye pain [] HENT: Denies nasal congestion or sore throat [] Complaints of neck pain. Respiratory: Denies cough or shortness of breath [] Cardiovascular: No additional information not addressed in HPI [] GI: Denies abdominal pain, nausea, vomiting, bloody stools or diarrhea [] : Denies dysuria or hematuria [] Musculoskeletal: Denies back pain or joint pain [] Integument: Denies rash or skin lesions [] Neurologic: Complains of headache, Denies any new focal weakness or sensory changes [] Endocrine: Denies polyuria or polydipsia [] All other systems were reviewed and found to be within normal limits, except as documented in this note. Family History Family History Noncontributory to presentation. Current Medications Current Medications Current Medications Medications (Trade) Dose Ordered Sig/Linsey Start Time Stop Time Status Last Admin Dose Admin Lactated Ringer's 1,000 ml @ 1,000 mls/hr Q1H 11/24/18 02:30 11/24/18 03:29 DC 11/24/18 04:14 1,000 MLS/HR Allergies Allergies Allergies Coded Allergies Type Severity Reaction Last Updated Verified prednisone Allergy Intermediate "Goes crazy." 09/22/13 Yes lisinopril Adverse Reaction Intermediate COUGH 11/13/15 Yes Physical Exam Physical Exam Constitutional: moderately acute distress, chronically ill in appearance. [] HENT: Normocephalic, , bilateral external ears normal, oropharynx moist, no oral exudates, nose normal. Posterior scalp tenderness. Eyes: , conjunctiva normal, no discharge. [] Neck: Normal range of motion, paracervical tenderness, supple, no stridor. [] Cardiovascular.: Bradycardia Heart rate regular rhythm, no murmur , PMI to Lt. Lungs & Thorax: Bilateral breath sounds basilar crackles and scattered wheezes on auscultation []Pacer. Abdomen: Bowel sounds normal, soft, no tenderness, no masses, no pulsatile masses. Scar. Skin: Warm, dry, no erythema, no rash. [] Back: No tenderness, no CVA tenderness. [] Extremities: No tenderness, no cyanosis, no clubbing, ROM intact, ankle edema. Arthritic changes. Neurologic: Alert, moves all ext. on request, distal sensory function, slurred speech. ( and son state he is at his current baseline) Psychologic: Affect anxious, mood depressed. Current Patient Data Vital Signs Vital Signs Date Time Temp Pulse Resp B/P (MAP) Pulse Ox O2 Delivery O2 Flow Rate FiO2 11/24/18 04:26 60 18 122/58 (79) 97 Room Air 11/24/18 01:51 99.1 Lab Results Laboratory Tests Test 11/24/18 03:20 11/24/18 03:35 White Blood Count 6.8 x10^3/uL (4.0-11.0) Red Blood Count 4.35 x10^6/uL (4.30-5.70) Hemoglobin 13.4 g/dL (13.0-17.5) Hematocrit 40.0 % (39.0-53.0) Mean Corpuscular Volume 92 fL (79-100) Mean Corpuscular Hemoglobin 31 pg (25-35) Mean Corpuscular Hemoglobin Concent 34 g/dL (31-37) Red Cell Distribution Width 13.4 % (11.5-14.5) Platelet Count 200 x10^3/uL (140-400) Neutrophils (%) (Auto) 63 % (31-73) Lymphocytes (%) (Auto) 24 % (24-48) Monocytes (%) (Auto) 9 % (0-9) Eosinophils (%) (Auto) 4 % (0-3) H Basophils (%) (Auto) 0 % (0-3) Neutrophils # (Auto) 4.3 x10^3uL (1.8-7.7) Lymphocytes # (Auto) 1.6 x10^3/uL (1.0-4.8) Monocytes # (Auto) 0.6 x10^3/uL (0.0-1.1) Eosinophils # (Auto) 0.3 x10^3/uL (0.0-0.7) Basophils # (Auto) 0.0 x10^3/uL (0.0-0.2) Prothrombin Time 10.2 SEC (9.4-11.4) Prothrombin Time INR 1.0 (0.9-1.1) PTT 31 SEC (23-33) D-Dimer (Justine) 0.65 mg/L (0.00-0.50) H Sodium Level 140 mmol/L (136-145) Potassium Level 4.0 mmol/L (3.5-5.1) Chloride Level 103 mmol/L (98-107) Carbon Dioxide Level 27 mmol/L (21-32) Anion Gap 10 (6-14) Blood Urea Nitrogen 24 mg/dL (8-26) Creatinine 1.5 mg/dL (0.7-1.3) H Estimated GFR (Cockcroft-Gault) 46.5 Glucose Level 81 mg/dL (70-99) Calcium Level 9.0 mg/dL (8.5-10.1) Magnesium Level 2.2 mg/dL (1.8-2.4) Total Bilirubin 0.4 mg/dL (0.2-1.0) Direct Bilirubin 0.1 mg/dL (0.0-0.2) Aspartate Amino Transferase (AST) 15 U/L (15-37) Alanine Aminotransferase (ALT) 21 U/L (16-63) Alkaline Phosphatase 194 U/L (46-116) H Creatine Kinase 39 U/L (39-308) Troponin I Quantitative < 0.017 ng/mL (0-0.055) TD-Mlh-W-Type Natriuretic Peptide 130 pg/mL (0-124) H Total Protein 7.0 g/dL (6.4-8.2) Albumin 3.4 g/dL (3.4-5.0) Lipase 66 U/L (73-393) L Urine Collection Type Unknown Urine Color Brown Urine Clarity Hazy Urine pH 5.5 Urine Specific [place] 1.025 Urine Protein 30 mg/dl (NEG-TRACE) Urine Glucose (UA) Neg mg/dL (NEG) Urine Ketones (Stick) Trace mg/dL (NEG) Urine Blood Neg (NEG) Urine Nitrite Neg (NEG) Urine Bilirubin Neg (NEG) Urine Urobilinogen Dipstick 1 mg/dL (0.2 mg/dL) Urine Leukocyte Esterase Neg (NEG) Urine RBC 0 /HPF (0-2) Urine WBC Occ /HPF (0-4) Urine Squamous Epithelial Cells Occ /LPF Urine Bacteria 0 /HPF (0-FEW) Urine Opiates Screen Pos (NEG) Urine Methadone Screen Neg (NEG) Urine Barbiturates Neg (NEG) Urine Phencyclidine Screen Neg (NEG) Urine Amphetamine/Methamphetamine Neg (NEG) Urine Benzodiazepines Screen Pos (NEG) Urine Cocaine Screen Neg (NEG) Urine Cannabinoids Screen Neg (NEG) Urine Ethyl Alcohol Neg (NEG) EKG EKG My interpretation EKG shows a sinus bradycardia at 60 bpm. Slightly prolonged AL interval. Left axis. No findings acute STEMI of contralateral changes.[] Radiology/Procedures Radiology/Procedures [][address] [address] IMAGING REPORT Signed PATIENT: DEISY SCHILLING ACCOUNT: [id number] : 1950 LOCATION: ER AGE: 68 SEX: M EXAM STATUS: REG ER ORD. PHYSICIAN: RAISA ZAMUDIO MD REASON: Fall x 2, PROCEDURE: CT HEAD AND CERVICAL SPINE WO EXAM: CT HEAD WITHOUT IV CONTRAST CLINICAL HISTORY: Fall COMPARISON: 03/28/18 TECHNIQUE: Routine CT of the head without contrast. Soft tissues and bone windows were reviewed. PQRS compliance statement - One or more of the following individualized dose reduction techniques were utilized for this study: 1. Automated exposure control 2. Adjustment of the mA and/or kV according to patient size 3. Use of iterative reconstruction technique FINDINGS: There is no evidence of hemorrhage, mass or extra-axial fluid collection. Sarmiento-white differentiation is maintained. Subcortical and periventricular foci of hypoattenuation may be seen with chronic small vessel disease. Encephalomalacia right posterior parietal region. There is no mass effect or shift of the intracranial structures. The ventricles and cerebral sulci are prominent for the patients stated age consistent with generalized cerebral volume loss. The cerebellum and brainstem are unremarkable. The calvarium demonstrates no evidence of fracture or focal lesion. There is normal aeration of the visualized paranasal sinuses and mastoid air cells. Metallic density within the right orbit, likely from prior surgery. Atherosclerotic calcifications of the intracranial internal carotid arteries is seen. IMPRESSION: 1. No evidence for acute intracranial process 2. Changes of chronic small vessel disease 3. Generalized cerebral atrophy. 4. Right posterior parietal encephalomalacia. EXAM: CT CERVICAL SPINE WITHOUT IV CONTRAST CLINICAL HISTORY: Fall, neck pain COMPARISON: None available. TECHNIQUE: Helical CT of the cervical spine was performed. Axial, coronal and sagittal reformatted images were also performed. PQRS compliance statement - One or more of the following individualized dose reduction techniques were utilized for this study: 1. Automated exposure control 2. Adjustment of the mA and/or kV according to patient size 3. Use of iterative reconstruction technique FINDINGS: Vertebral body heights are preserved. Straightening of the normal cervical lordosis. Moderate C3-4, C4-5, C5-6 and moderate to severe C6-7 disc height loss. Endplate osteophytes are seen. No spondylolisthesis. IMPRESSION: No evidence for acute fracture or subluxation. Multilevel degenerative changes as above. Electronically signed by: Jena Castrejon MD (11/24/2018 3:36 AM) [facility] DICTATED AND SIGNED BY: JEAN CASTREJON MD DATE: 11/24/18 0337 CC: RAISA ZAMUDIO MD; MEG LOPEZ MD ~ My interpretation of CXR - Cardiomegaly, pacer, poor vol. spinal stimulator Course & Med Decision Making Course & Med Decision Making Pertinent Labs and Imaging studies reviewed. (See chart for details) Discussed presentation, testing and tx. plan with Dr. Lopez. Will admit for probably short observation. Neuro checks. [] Final Impression Final Impression 1. Falling 2. Head Injury 3. Hx. TIA/ CVAs- 4. Elevation D-dimer 0.65 5. Elevated Creat. 1.5 6. Hx. Dementia Dragon Disclaimer Dragon Disclaimer This electronic medical record was generated, in whole or in part, using a voice recognition dictation system. Discharge Summary Visit Information Final Diagnosis Problems Medical Problems: (1) Frequent falls Status: Acute (2) Head injury Status: Acute Brief Hospital Course Allergies Allergies Coded Allergies Type Severity Reaction Last Updated Verified prednisone Allergy Intermediate "Goes crazy." 09/22/13 Yes lisinopril Adverse Reaction Intermediate COUGH 11/13/15 Yes Vital Signs Vital Signs Date Time Temp Pulse Resp B/P (MAP) Pulse Ox O2 Delivery O2 Flow Rate FiO2 11/24/18 04:26 60 18 122/58 (79) 97 Room Air 11/24/18 01:51 99.1 Lab Results Laboratory Tests Test 11/24/18 03:20 11/24/18 03:35 White Blood Count 6.8 x10^3/uL (4.0-11.0) Red Blood Count 4.35 x10^6/uL (4.30-5.70) Hemoglobin 13.4 g/dL (13.0-17.5) Hematocrit 40.0 % (39.0-53.0) Mean Corpuscular Volume 92 fL (79-100) Mean Corpuscular Hemoglobin 31 pg (25-35) Mean Corpuscular Hemoglobin Concent 34 g/dL (31-37) Red Cell Distribution Width 13.4 % (11.5-14.5) Platelet Count 200 x10^3/uL (140-400) Neutrophils (%) (Auto) 63 % (31-73) Lymphocytes (%) (Auto) 24 % (24-48) Monocytes (%) (Auto) 9 % (0-9) Eosinophils (%) (Auto) 4 % (0-3) Basophils (%) (Auto) 0 % (0-3) Neutrophils # (Auto) 4.3 x10^3uL (1.8-7.7) Lymphocytes # (Auto) 1.6 x10^3/uL (1.0-4.8) Monocytes # (Auto) 0.6 x10^3/uL (0.0-1.1) Eosinophils # (Auto) 0.3 x10^3/uL (0.0-0.7) Basophils # (Auto) 0.0 x10^3/uL (0.0-0.2) Prothrombin Time 10.2 SEC (9.4-11.4) Prothromb Time International Ratio 1.0 (0.9-1.1) Activated Partial Thromboplast Time 31 SEC (23-33) D-Dimer (Justine) 0.65 mg/L (0.00-0.50) Sodium Level 140 mmol/L (136-145) Potassium Level 4.0 mmol/L (3.5-5.1) Chloride Level 103 mmol/L (98-107) Carbon Dioxide Level 27 mmol/L (21-32) Anion Gap 10 (6-14) Blood Urea Nitrogen 24 mg/dL (8-26) Creatinine 1.5 mg/dL (0.7-1.3) Estimated GFR (Cockcroft-Gault) 46.5 Glucose Level 81 mg/dL (70-99) Calcium Level 9.0 mg/dL (8.5-10.1) Magnesium Level 2.2 mg/dL (1.8-2.4) Total Bilirubin 0.4 mg/dL (0.2-1.0) Direct Bilirubin 0.1 mg/dL (0.0-0.2) Aspartate Amino Transf (AST/SGOT) 15 U/L (15-37) Alanine Aminotransferase (ALT/SGPT) 21 U/L (16-63) Alkaline Phosphatase 194 U/L (46-116) Creatine Kinase 39 U/L (39-308) Troponin I Quantitative < 0.017 ng/mL (0-0.055) JS-Mup-N-Type Natriuretic Peptide 130 pg/mL (0-124) Total Protein 7.0 g/dL (6.4-8.2) Albumin 3.4 g/dL (3.4-5.0) Lipase 66 U/L (73-393) Urine Collection Type Unknown Urine Color Brown Urine Clarity Hazy Urine pH 5.5 Urine Specific [place] 1.025 Urine Protein 30 mg/dl (NEG-TRACE) Urine Glucose (UA) Neg mg/dL (NEG) Urine Ketones (Stick) Trace mg/dL (NEG) Urine Blood Neg (NEG) Urine Nitrite Neg (NEG) Urine Bilirubin Neg (NEG) Urine Urobilinogen Dipstick 1 mg/dL (0.2 mg/dL) Urine Leukocyte Esterase Neg (NEG) Urine RBC 0 /HPF (0-2) Urine WBC Occ /HPF (0-4) Urine Squamous Epithelial Cells Occ /LPF Urine Bacteria 0 /HPF (0-FEW) Urine Opiates Screen Pos (NEG) Urine Methadone Screen Neg (NEG) Urine Barbiturates Neg (NEG) Urine Phencyclidine Screen Neg (NEG) Urine Amphetamine/Methamphetamine Neg (NEG) Urine Benzodiazepines Screen Pos (NEG) Urine Cocaine Screen Neg (NEG) Urine Cannabinoids Screen Neg (NEG) Urine Ethyl Alcohol Neg (NEG) Brief Hospital Course Mr. Schilling is a 68 old male who presented with hx of falls at [facility] x 2. Head injury. Admitted to Dr. Lopez for further eval. Discharge Information Condition at Discharge: Improved Dischare Medications Current Medications Lactated Ringer's 1,000 ml @ 1,000 mls/hr Q1H IV Last administered on 11/24/18at 04:14; Admin Dose 1,000 MLS/HR; Start 11/24/18 at 02:30; Stop 11/24/18 at 03:29; Status DC Active Scripts Active Cipro (Ciprofloxacin Hcl) 500 Mg Tablet 1 Tab PO BID Flomax (Tamsulosin Hcl) 0.4 Mg Cap.er.24h 1 Cap PO DAILY Reported Advair 250-50 Diskus (Fluticasone/Salmeterol) 1 Each Disk.w.dev 1 Puff IH BID Prochlorperazine Maleate 10 Mg Tablet 10 Mg PO Zetia (Ezetimibe) 10 Mg Tablet 1 Tab PO DAILY Ranexa (Ranolazine) 500 Mg Tab.er.12h 1 Tab PO BID Nitrostat (Nitroglycerin) 0.4 Mg Tab.subl 0.4 Mg SL Diazepam 10 Mg Tablet 10 Mg PO Clopidogrel (Clopidogrel Bisulfate) 75 Mg Tablet 1 Tab PO DAILY Chantix (Varenicline Tartrate) 1 Each Tab.ds.pk 1 Each PO Baclofen 10 Mg Tablet 10 Mg PO TID Losartan-Hctz 50-12.5 Mg Tab (Losartan/Hydrochlorothiazide) 1 Each Tablet 1 Each PO DAILY Losartan-Hctz 50-12.5 Mg Tab (Losartan/Hydrochlorothiazide) 1 Each Tablet 1 Each PO Advair 250-50 Diskus (Fluticasone/Salmeterol) 1 Each Disk.w.dev 1 Each IH BID Symbicort 160-4.5 Mcg Inhaler (Budesonide/Formoterol Fumarate) 10.2 Gm Hfa.aer.ad 2 Puff IH BID Zofran Odt (Ondansetron) 4 Mg Tab.rapdis 4 Mg PO PRN Oxycodone-Acetaminophen 10-325 (Oxycodone Hcl/Acetaminophen) 1 Each Tablet 1 Each PO PRN Lamotrigine 200 Mg Tablet 200 Mg PO DAILY Bystolic (Nebivolol Hcl) 10 Mg Tablet 10 Mg PO DAILY Nexium Capsule (Esomeprazole Magnesium) 20 Mg Capsule.dr 20 Mg PO BID Zolpidem Tartrate 5 Mg Tablet 5 Mg PO QHS PRN Donepezil Hcl 5 Mg Tablet 5 Mg PO DAILY Hydrocodone-Apap 10-300 (Hydrocodone Bit/Acetaminophen) 1 Each Tablet 1 Each PO Nexium Capsule (Esomeprazole Magnesium) 20 Mg Capsule.dr 20 Mg PO Aspirin Buffered 325 Mg Tab (Aspirin/Calcium Carbonate/Mag) 325 Mg Tablet 325 Mg PO Aspirin 81 Mg Tab.chew 81 Mg PO Soma (Carisoprodol) 350 Mg Tablet 350 Mg PO QID Simvastatin 20 Mg Tablet 40 Mg PO HS Levothyroxine Sodium 50 Mcg Tablet 25 Mcg PO DAILY Lorazepam 0.5 Mg Tablet 1 Mg PO TID Effexor Xr (Venlafaxine Hcl) 75 Mg Cap.er.24h 75 Mg PO DAILY Dragon Disclaimer This chart was dictated in whole or in part using Voice Recognition software in a busy, high-work load, and often noisy Emergency Department environment. It may contain unintended and wholly unrecognized errors or omissions. RAISA ZAMUDIO MD Nov 24, 2018 01:54
[2018-11-24] MEDS ORDERED: IV RINGERS SOLUTION,LACTATED 1,000 ML IV SCH (02:30)
--- NOTE | 2018-11-24 03:39 | RAD ---
EXAM: CT HEAD WITHOUT IV CONTRAST CLINICAL HISTORY: Fall COMPARISON: 03/28/18 TECHNIQUE: Routine CT of the head without contrast. Soft tissues and bone windows were reviewed. PQRS compliance statement - One or more of the following individualized dose reduction techniques were utilized for this study: 1. Automated exposure control 2. Adjustment of the mA and/or kV according to patient size 3. Use of iterative reconstruction technique FINDINGS: There is no evidence of hemorrhage, mass or extra-axial fluid collection. Sarmiento-white differentiation is maintained. Subcortical and periventricular foci of hypoattenuation may be seen with chronic small vessel disease. Encephalomalacia right posterior parietal region. There is no mass effect or shift of the intracranial structures. The ventricles and cerebral sulci are prominent for the patients stated age consistent with generalized cerebral volume loss. The cerebellum and brainstem are unremarkable. The calvarium demonstrates no evidence of fracture or focal lesion. There is normal aeration of the visualized paranasal sinuses and mastoid air cells. Metallic density within the right orbit, likely from prior surgery. Atherosclerotic calcifications of the intracranial internal carotid arteries is seen. IMPRESSION: 1. No evidence for acute intracranial process 2. Changes of chronic small vessel disease 3. Generalized cerebral atrophy. 4. Right posterior parietal encephalomalacia. EXAM: CT CERVICAL SPINE WITHOUT IV CONTRAST CLINICAL HISTORY: Fall, neck pain COMPARISON: None available. TECHNIQUE: Helical CT of the cervical spine was performed. Axial, coronal and sagittal reformatted images were also performed. PQRS compliance statement - One or more of the following individualized dose reduction techniques were utilized for this study: 1. Automated exposure control 2. Adjustment of the mA and/or kV according to patient size 3. Use of iterative reconstruction technique FINDINGS: Vertebral body heights are preserved. Straightening of the normal cervical lordosis. Moderate C3-4, C4-5, C5-6 and moderate to severe C6-7 disc height loss. Endplate osteophytes are seen. No spondylolisthesis. IMPRESSION: No evidence for acute fracture or subluxation. Multilevel degenerative changes as above. Electronically signed by: Jean Callahan MD (11/24/2018 3:36 AM) [place] [id number]
[2018-11-24 04:11] LABS: BASO % 0 % (0-3); EOS # 0.3 x10^3/uL (0.0-0.7); EOS % 4 % (0-3); HEMOGLOBIN 13.4 g/dL (13.0-17.5); LYMPH # 1.6 x10^3/uL (1.0-4.8); LYMPH % 24 % (24-48); MEAN CORPUSCULAR HEMOGLOBIN 31 pg (25-35); MEAN CORPUSCULAR HGB CONC 34 g/dL (31-37); MEAN CORPUSCULAR VOLUME 92 fL (79-100); MONO # 0.6 x10^3/uL (0.0-1.1); MONO % 9 % (0-9); NEUT # 4.3 x10^3uL (1.8-7.7); NEUT % 63 % (31-73); PLATELET COUNT 200 x10^3/uL (140-400); RED BLOOD COUNT 4.35 x10^6/uL (4.30-5.70); RED CELL DISTRIBUTION WIDTH 13.4 % (11.5-14.5); WHITE BLOOD COUNT 6.8 x10^3/uL (4.0-11.0)
[2018-11-24 04:32] LABS: COLOR,URINE BROWN
[2018-11-24 04:33] LABS: BACTERIA,URINE 0 /HPF (0-FEW); BILIRUBIN,URINE NEG (NEG); CLARITY,URINE HAZY; GLUCOSE,URINE NEG (NEG); NITRITE,URINE NEG (NEG); RBC,URINE 0 /HPF (0-2); SQUAMOUS EPITHELIAL CELL,UR OCC /LPF; UROBILINOGEN,URINE 1 mg/dL (0.2 mg/dL); WBC,URINE OCC /HPF (0-4)
[2018-11-24 04:41] LABS: BARBITURATES NEG (NEG); BENZODIAZEPINES POS (NEG); CANNABINOIDS NEG (NEG); COCAINE NEG (NEG); METHADONE NEG (NEG); OPIATES POS (NEG); PHENCYCLIDINE NEG (NEG)
[2018-11-24 04:52] LABS: AMPHETAMINE/METHAMPHETAMINE NEG (NEG)
[2018-11-24 04:54] LABS: ALBUMIN 3.4 g/dL (3.4-5.0); CREATININE 1.5 mg/dL (0.7-1.3); DIRECT BILIRUBIN 0.1 mg/dL (0.0-0.2); GFR 46.5; MAGNESIUM 2.2 mg/dL (1.8-2.4); TOTAL BILIRUBIN 0.4 mg/dL (0.2-1.0)
[2018-11-24] MEDS ORDERED: ENOXAPARIN ** NOTE DOSE ** SYRINGE SQ ONE (05:30)
[2018-11-24] MEDS ORDERED: ONDANSETRON PF 4 MG/2 ML VIAL. IV PRN (05:30)
[2018-11-24] MEDS ORDERED: IPRATRPIUM/ALBUTEROL 0.5/2.5MG 3 ML NEBU. NEB SCH ×2 (08:00→12:00)
[2018-11-24] MEDS ORDERED: FINA5TAB4 PO (08:11)
[2018-11-24] MEDS ORDERED: CYAN100072 PO (08:11)
[2018-11-24] MEDS ORDERED: TAMS0.4C97 PO (08:11)
[2018-11-24] MEDS ORDERED: DIVA250T14 PO (08:11)
[2018-11-24] MEDS ORDERED: IRBE300T3 PO ×2 (08:11→16:24)
[2018-11-24] MEDS ORDERED: GLYC1SUP61 RC (08:11)
[2018-11-24] MEDS ORDERED: POLY17PO5 PO (08:11)
[2018-11-24] MEDS ORDERED: DONE5TAB56 PO (08:11)
[2018-11-24] MEDS ORDERED: DEXL60CA2 PO (08:11)
[2018-11-24] MEDS ORDERED: CARV6.253 PO (08:11)
[2018-11-24] MEDS ORDERED: RANO500T2 PO (08:11)
[2018-11-24] MEDS ORDERED: OMEP40CA5 PO (08:11)
[2018-11-24] MEDS ORDERED: ALBU2.5V8 IH (08:11)
[2018-11-24] MEDS ORDERED: SUCR1TAB PO (08:11)
--- NOTE | 2018-11-24 08:17 | EKG ---
[address] [address] Test Date: 2018-11-24 Test Time: 02:40:25 Pat Name: DEISY TURNER Department: Room: Gender: M Complex Care Nurse: : 1950 Requested By: RAISA ZAMUDIO Order Number: [id number] Reading MD: Measurements Intervals [place] Rate: 60 P: 35 WI: 226 QRS: -15 QRSD: 76 T: 33 QT: 388 QTc: 388 Interpretive Statements SINUS RHYTHM PROLONGED WI INTERVAL LEFTWARD AXIS ABNORMAL ECG RI6.01 Compared to ECG 09/12/2017 17:18:14 First degree AV block now present
--- NOTE | 2018-11-24 08:24 | RAD ---
Chest radiograph 11/24/2018 2:21 AM INDICATION: Falling COMPARISON: November 01, 2016 TECHNIQUE: Portable upright frontal view of the chest is provided. FINDINGS: The cardiomediastinal silhouette is borderline enlarged, stable. Left chest wall cardiac device is in similar position. There are no pleural effusions. There is no pulmonary vascular congestion. There is no pneumothorax. The lungs are clear. No significant osseous abnormality is identified. IMPRESSION: No acute cardiopulmonary process. Electronically signed by: Camilla Carter MD (11/24/2018 8:21 AM) [facility]
[2018-11-24] MEDS ORDERED: IRBESARTAN 300 MG PO SCH (09:15)
[2018-11-24] MEDS ORDERED: ALBUTEROL SULFATE 2.5 MG/3 ML NEBU. IH SCH (09:15)
[2018-11-24] MEDS ORDERED: NON FORMULARY ITEM (Fluticasone/Salmeterol (Advair 250-50 Diskus) 1 EACH) IH SCH (09:15)
[2018-11-24] MEDS ORDERED: NITROGLYCERIN SUBLINGUAL 0.4 MG BOTTLE OF 25. SL PRN (09:15)
[2018-11-24] MEDS ORDERED: NON FORMULARY ITEM (Aspirin 81 MG) PO SCH (09:15)
[2018-11-24] MEDS ORDERED: ONDANSETRON ODT 4 MG TAB.RAPDIS PO PRN (09:45)
[2018-11-24] MEDS ORDERED: GLYCERIN ADULT 1 SUPP.RECT. PR PRN (09:45)
--- NOTE | 2018-11-24 10:15 | RAD ---
Bilateral lower extremity venous Doppler ultrasound History: Elevated d-dimer. Comparison: None. Procedure: Color flow Doppler, Doppler spectral analysis, and 2D images are obtained with and without compression in the area of the common femoral vein, superficial femoral vein - femoral vein junction, main femoral vein (superficial femoral vein) and popliteal vein. Veins of the proximal calf are also imaged. Findings: There is normal color flow, augmentation, and compressibility of all visualized vein segments. No evidence of deep venous thrombus is present. IMPRESSION: No evidence of right or left lower extremity deep venous thrombosis. Electronically signed by: Jorge Holly MD (11/24/2018 10:13 AM) [id number]
[2018-11-24] MEDS: ALBUTEROL SULFATE 2.5 MG/3 ML NEBU. NEB SCH ×3 (11:28→20:46)
[2018-11-24] MEDS: BUDESONIDE 0.5 MG/2 ML NEBU NEB SCH ×2 (11:28→20:46)
[2018-11-24] MEDS: ASPIRIN 81 MG TAB.CHEW PO SCH (12:16)
[2018-11-24] MEDS: TAMSULOSIN 0.4 MG CAP.ER.24H. PO SCH (12:16)
[2018-11-24] MEDS: CARVEDILOL 6.25 MG TABLET PO SCH ×2 (12:16→17:02)
[2018-11-24] MEDS: FINASTERIDE 5 MG TABLET PO SCH (12:16)
[2018-11-24] MEDS: EZETIMIBE 10 MG TABLET PO SCH (12:16)
[2018-11-24] MEDS: CYANOCOBALAMIN (VITAMIN B-12) 1,000 MCG TABLET. PO SCH (12:16)
[2018-11-24] MEDS: DONEPEZIL HCL 5 MG TABLET. PO SCH (12:17)
[2018-11-24] MEDS: VENLAFAXINE 37.5 MG TABLET. PO SCH ×2 (12:18→21:21)
[2018-11-24] MEDS: SUCRALFATE 1 GM TABLET. PO SCH ×3 (12:18→21:22)
[2018-11-24] MEDS: DIVALPROEX ER 500 MG TAB.ER.24H PO SCH (12:18)
[2018-11-24] MEDS: PANTOPRAZOLE 40 MG TABLET. PO SCH (12:18)
[2018-11-24] MEDS: RANOLAZINE 500 MG TAB.ER.12H PO SCH (12:18)
--- NOTE | 2018-11-24 19:41 | HP ---
ADMIT DATE: 11/24/2018 HISTORY OF PRESENT ILLNESS: The patient is a 68-year-old male patient who is currently residing at [facility] in [place] who was apparently brought to the Emergency Room with recurrent falls and stated he was up and he was using his walker and tripped and fell. He stated that he has right-sided weakness. He hit his head hard and complaining of pain in his head and neck. He was extensively evaluated in the Emergency Room, has had a CT scan of the head as well as cervical spine, which were unremarkable and the patient was admitted for further evaluation and treatment. He apparently has [facility] so far at the [facility], normally lives at home with his who herself has surgery in her hip and is unable to take care of him. PAST MEDICAL HISTORY: Significant for hypertension, prior history of cerebrovascular accident, syncope, hyperlipidemia, carotid artery disease, gastroesophageal reflux disease, obstructive sleep apnea, vertigo, obesity, abnormal cardiac function study, hypertensive heart disease without heart failure, major depression, bipolar disorder, chronic low back pain with stimulator in place, hypothyroidism. PAST SURGICAL HISTORY: Significant for bilateral cataract extraction, spinal cord stimulator placement and permanent pacemaker placement. ALLERGIES: Showed that he is allergic to LISINOPRIL, NAMENDA and PREDNISONE. MEDICATIONS: He is currently on following medications: He is on Aricept 5 mg once a day, albuterol sulfate 2 puffs 6 times a day, Flomax 0.8 mg daily, Soma 350 mg 4 times a day, Plavix 75 mg once a day, Ranexa 500 mg daily, Zetia 10 mg once a day, nitroglycerin 0.4 mg sublingually every 5 minutes x 3, carvedilol 6.25 mg twice a day with meals. He is also on irbesartan 300 mg twice a day, aspirin 81 mg once a day, oxycodone/APAP 10/325 one tablet every 6 hours. He is on divalproex 500 mg daily, lamotrigine 200 mg at bedtime, venlafaxine 75 mg daily. He is on diazepam 10 mg every 6 hours, Ambien 5 mg at bedtime. He is on Symbicort 160/4.5 mcg twice a day. Glycine suppository one rectally every 12 hours as needed, polyethylene glycol 17 grams twice a day. He is on ondansetron for Zofran ODT 4 mg every 8 hours, sucralfate 1 gram before meals and bedtime. He is on Dexilant 60 mg once a day, omeprazole 40 mg twice a day, cyanocobalamin 1000 mcg daily, finasteride 5 mg at bedtime. FAMILY HISTORY: Noncontributory. SOCIAL HISTORY: He is , lives with his . He apparently continued to smoke, does not drink alcohol or use any recreational drugs. REVIEW OF SYSTEMS: As per history of present illness. PHYSICAL EXAMINATION: GENERAL: On arrival to the Emergency Room, the patient was somewhat pale, but no jaundice, cyanosis or thyromegaly. No jugular venous distention. No limb edema. VITAL SIGNS: His heart rate was 60, blood pressure was 143/73, temperature was 99.1, respiratory rate was 18 and oxygen saturation was 95%. EXAMINATION OF THE HEAD, EYES, EAR, NOSE AND THROAT: Normocephalic, atraumatic. NECK: Supple. HEART: Showed normal first and second heart sounds. No gallop, rub or murmur. CHEST: Clear to auscultation. No crepitation or rhonchi. ABDOMEN: Distended, soft, nontender. NEUROLOGIC: He is awake, alert, responding appropriately. All cranial nerves intact. He seemed to have right-sided hemiparesis. He normally walks with a walker. LABORATORY DATA: His lab work on arrival showed a white cell count of 6800, hemoglobin 13, hematocrit 40, MCV 92, and platelet count ____ with normal manual differential. Serum sodium 140, potassium 4, chloride 103, bicarbonate 27, anion gap of 10, BUN 24, creatinine 1.5, estimated GFR was 46 mL per minute. His glucose ____, calcium was 9, magnesium was 2.2. Total bilirubin, AST, ALT normal. Alkaline phosphatase slightly elevated. CK was 59, beta-natriuretic peptide was 130, total protein was 7, albumin was 3.4. His prothrombin time was 10.2, INR of 1, and PTT was 31. D-dimer was slightly elevated at 0.65. His urinalysis was essentially unremarkable. The urine was brown, hazy with a pH of 5.5, specific gravity of 1.025, small amount of protein. The urine was negative for glucose. There was trace of ketones, negative for blood and nitrite, negative for leukocyte esterase with 0 rbc's, occasional wbc's and no bacteria. His toxic screen was positive for opiates and benzodiazepines. His nasal screen for MRSA PCR was negative. He has had a CT scan of the head and cervical spine. CT scan of the head showed there is no evidence of hemorrhage, mass, or extraaxial fluid collection. Herrera-white differentiation is maintained subcortical and periventricular foci of hypoattenuation to be seen with chronic small vessel disease, encephalomalacia of the right posterior parietal region. There is no mass effect or shift of the intracranial structures. The ventricles and cerebral sulci are prominent for the patient's stated age consistent with generalized cerebral volume loss. The cerebellum and brainstem are unremarkable. The calvarium demonstrates no evidence of fracture or focal lesion. There is ____ of the visualized paranasal sinuses and mastoid air cells. He has also metallic density within the right orbit, likely from prior surgery, has also atherosclerotic calcification of the internal carotid artery is seen. A CT scan of the cervical spine without contrast showed that the vertebral body heights are preserved, straightening of the normal cervical lordosis, has moderate C3-C4, C4-C5, C5-C6, moderate to severe C6-C7 disk height loss and endplate osteophytes are seen. No spondylolisthesis. His chest x-ray showed that the cardiomediastinal silhouette is borderline enlarged, stable left chest wall cardiac devices in similar position. There is no pleural effusion. There is no pulmonary vascular congestion. There is no pneumothorax. The lungs are clear. No significant osseous abnormalities identified. Given his elevated D-dimer, he has a venous Doppler ultrasound of both lower extremities showed that there is normal color flow augmentation and compressibility of all visualized vein segments. No evidence of deep vein thrombosis present. In summary, this is a 68-year-old male patient who came in with recurrent falls. He has apparently left-sided hemiparesis, has had a pacemaker placed in 2013. The patient does not know when was the last time interrogated, had had syncopal episode before. My plan is to interrogate his pacemaker, also do bilateral carotid Doppler ultrasound and consult Neurology. Check his fasting lipid profile tomorrow. He is also on a lot of medications that might predispose him to fall. He is on diazepam 10 mg every 6 hours, zolpidem 5 mg. He is also on oxycodone and Soma, which obviously ____ make him sedated and probably unsteady and fall. MEG GILLIS MD DR: FELIX/scooby JOB#: [id number] / [id number]
[2018-11-24] MEDS ORDERED: lamoTRIgine 100 MG TABLET. PO SCH (21:00)
[2018-11-24] MEDS: LOSARTAN 50 MG TABLET. PO SCH (21:00)
[2018-11-24] MEDS ORDERED: NON FORMULARY ITEM (Budesonide/Formoterol Fumarate (Symbicort 160-4.5 Mcg Inhaler) 2 PUFF) IH SCH (21:00)
[2018-11-24] MEDS ORDERED: IRBESARTAN PO SCH (21:00)
[2018-11-24] MEDS: POLYETHYLENE GLYCOL 3350 17 GM PACKET. PO SCH (21:21)
[2018-11-25] MEDS ORDERED: ACETAMINOPHEN 325 MG TABLET PO PRN
[2018-11-25] MEDS: ALBUTEROL SULFATE 2.5 MG/3 ML NEBU. NEB SCH ×3 (04:54→15:23)
[2018-11-25 05:42] VITALS: BP 114/54
[2018-11-25 06:30] LABS: BASO % 1 % (0-3); EOS # 0.2 x10^3/uL (0.0-0.7); EOS % 4 % (0-3); HEMATOCRIT 37.4 % (39.0-53.0); HEMOGLOBIN 12.5 g/dL (13.0-17.5); LYMPH # 1.5 x10^3/uL (1.0-4.8); LYMPH % 30 % (24-48); MEAN CORPUSCULAR HEMOGLOBIN 31 pg (25-35); MEAN CORPUSCULAR HGB CONC 34 g/dL (31-37); MEAN CORPUSCULAR VOLUME 92 fL (79-100); MONO # 0.5 x10^3/uL (0.0-1.1); MONO % 10 % (0-9); NEUT # 2.9 x10^3uL (1.8-7.7); NEUT % 56 % (31-73); PLATELET COUNT 178 x10^3/uL (140-400); RED BLOOD COUNT 4.08 x10^6/uL (4.30-5.70); RED CELL DISTRIBUTION WIDTH 13.1 % (11.5-14.5); WHITE BLOOD COUNT 5.1 x10^3/uL (4.0-11.0)
[2018-11-25 06:40] LABS: CALCIUM 8.8 mg/dL (8.5-10.1); CREATININE 1.2 mg/dL (0.7-1.3); GFR 60.2; POTASSIUM 3.6 mmol/L (3.5-5.1)
[2018-11-25] MEDS: CARVEDILOL 6.25 MG TABLET PO SCH ×2 (08:00→16:51)
--- NOTE | 2018-11-25 08:24 | RAD ---
BILATERAL DUPLEX CAROTID SONOGRAPHY History: Recurrent falls. Technique: Duplex sonography of the cervical portion of both carotid arteries was performed. Real-time grayscale, color flow Doppler, and Doppler spectral waveform analysis is performed. Findings: Right side: Peak systolic flow velocity of the CCA is 99 cm/sec. Peak systolic flow velocity of the ICA is 107 cm/sec. The ICA/CCA ratio is 1.1. Peak end diastolic flow velocity of the ICA is 21 cm/sec. The peak systolic velocity of the ECA is 130 cm/sec. There is heterogeneous plaque throughout the common carotid artery and carotid bulb and ICA. Left side: Peak systolic flow velocity of the CCA is 81 cm/sec. Peak systolic flow velocity of the ICA is 88 cm/sec. The ICA/CCA ratio is 1.1. Peak end diastolic flow velocity of the ICA is 12 cm/sec. Peak systolic flow velocity of the ECA is 117 cm/sec. There is heterogeneous plaque throughout the common carotid artery and carotid bulb and ICA. Vertebral arteries: Bilateral vertebral arteries demonstrate antegrade flow. IMPRESSION: 1. No hemodynamically significant internal carotid artery stenosis is identified. 2. Heterogeneous plaque throughout the bilateral common carotid arteries, carotid bulbs, and ICAs. PQRS Compliance Statement - Stenosis calculations for CT, MR and conventional angiography are based upon measurement of the distal ICA diameter in accordance with the NASCET methodology. Stenosis calculations for carotid ultrasound studies are derived from validated velocity criteria which are known to correlate with the NASCET methodology. Electronically signed by: Jorge Holly MD (11/25/2018 8:22 AM) [id number]
[2018-11-25] MEDS: EZETIMIBE 10 MG TABLET PO SCH (08:25)
[2018-11-25] MEDS: FINASTERIDE 5 MG TABLET PO SCH (08:25)
[2018-11-25] MEDS: RANOLAZINE 500 MG TAB.ER.12H PO SCH (08:25)
[2018-11-25] MEDS: DIVALPROEX ER 500 MG TAB.ER.24H PO SCH (08:25)
[2018-11-25] MEDS: POLYETHYLENE GLYCOL 3350 17 GM PACKET. PO SCH (08:25)
[2018-11-25] MEDS: PANTOPRAZOLE 40 MG TABLET. PO SCH (08:25)
[2018-11-25] MEDS: TAMSULOSIN 0.4 MG CAP.ER.24H. PO SCH (08:26)
[2018-11-25] MEDS: ASPIRIN 81 MG TAB.CHEW PO SCH (08:26)
[2018-11-25] MEDS: VENLAFAXINE 37.5 MG TABLET. PO SCH (08:26)
[2018-11-25] MEDS: CYANOCOBALAMIN (VITAMIN B-12) 1,000 MCG TABLET. PO SCH (08:26)
[2018-11-25] MEDS: SUCRALFATE 1 GM TABLET. PO SCH ×3 (08:26→16:23)
[2018-11-25] MEDS: DONEPEZIL HCL 5 MG TABLET. PO SCH (08:26)
[2018-11-25] MEDS: LOSARTAN 50 MG TABLET. PO SCH (09:00)
[2018-11-25] MEDS: BUDESONIDE 0.5 MG/2 ML NEBU NEB SCH (09:30)
[2018-11-25 09:42] VITALS: BP 96/51
[2018-11-25 11:00] VITALS: BP 104/63
[2018-11-25 15:13] VITALS: BP 118/71
[2018-11-25 16:51] VITALS: BP 118/71
--- NOTE | 2018-11-25 17:04 | DS ---
DATE OF DISCHARGE: 11/25/2018 HOSPITAL COURSE: The patient is a 68-year-old male patient who is currently residing at [facility] in [place], who was admitted with recurrent falls. 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 He is also on multiple medications that are sedating and at diazepam can cause side effects of ataxia, which also can cause drowsiness and asthenia, ataxia, confusion and therefore, I discontinued his Soma and diazepam. We did interrogate his pacemaker and functioning well. Carotid Doppler ultrasound showed no evidence of any significant carotid artery stenosis. CT scan showed right posterior parietal encephalomalacia. No new stroke. The patient also stated that his walker folds on him and he stumbled and tripped on it, so we ordered a new walker for him and as he remained stable, he did well with the physical therapy and occupational therapy and decision was made to discharge him back to [facility] in [place] to continue with the process of rehabilitation there. When I saw him this afternoon, he was definitely more awake, alert, responding appropriately on questioning him. He denied any complaint. The nursing staff did not voice any concern that he had an uneventful night. PHYSICAL EXAMINATION: GENERAL: When I examined him, he looked well and was slightly pale, no jaundice, cyanosis, or thyromegaly. No jugular venous distension. No limb edema. VITAL SIGNS: His heart rate was 73, blood pressure was 104/63, temperature was 97.6, respiratory rate was 18 and oxygen saturation was 96%. HEAD, EYES, EARS, NOSE AND THROAT: Showed normocephalic, atraumatic. NECK: Supple. HEART: Showed normal first and second heart sounds. No gallop, rub or murmur. CHEST: Clear to auscultation. No crepitation or rhonchi. ABDOMEN: Distended, soft, nontender. NEUROLOGICAL: He is awake, alert, responding appropriately. All his cranial nerves are intact. He has left-sided hemiparesis. His intake over the last 24 hours was 1000. No output was recorded. LABORATORY DATA: His lab work this morning showed a white cell count 5000, hemoglobin 12.5, hematocrit 37, MCV 92, and platelet count of 178,000. His chemistry showed a serum sodium 142, potassium 3.6, chloride 105, bicarbonate 29, anion gap of 8, BUN 20, creatinine 1.2, estimated GFR was 60 mL per minute. His glucose was 74, calcium was 8.8. His prothrombin time was 10.2, INR of 1, and aPTT was 31. D-dimer was slightly elevated at 0.65 mg. Urinalysis was unremarkable. Toxic screen was positive for opiates as well as benzodiazepine. His nasal screen for MRSA PCR was negative. His imaging studies showed that he has had a CT scan of the head without contrast showed that the patient has no evidence of acute intracranial processes changes, chronic small vessel disease and generalized cerebral atrophy as well as right posterior parietal encephalomalacia. His CT scan of the cervical spine without contrast showed that the vertebral body heights are preserved straightening of the normal cervical lordosis, moderate C3-C4, C4-C5, C5-C6 and moderate to severe C6-C7 disk height loss and the plate osteophytes are seen. No spondylolisthesis. His chest x-ray showed that he has no significant osseous abnormality identified and his Doppler ultrasound of both lower extremities showed no evidence of right or left lower extremity deep vein thrombosis. Carotid Doppler ultrasound showed no evidence of hemodynamically significant internal carotid artery stenosis identified. He has heterogenous plaque throughout the bilateral common carotid arteries, carotid bulbs, and internal carotid arteries. DISCHARGE MEDICATIONS: He was discharged back to [facility] in [place] to continue on albuterol sulfate 2 puffs 4 times a day, aspirin 81 mg once a day, Symbicort 160/4.5 two puffs twice a day, carvedilol 6.25 mg twice a day with meals, Plavix 75 mg once a day, cyanocobalamin 1000 mcg p.o. daily, Dexilant 60 mg once a day, divalproex 500 mg daily, Aricept 5 mg daily, Zetia 10 mg once a day, finasteride 5 mg daily, Advair Diskus 250/50 one puff twice a day, lamotrigine 200 mg at bedtime, nitroglycerin for Nitrostat 0.4 mg sublingually, omeprazole 40 mg p.o. b.i.d., ondansetron 4 mg every 8 hours, oxycodone/APAP 10/325 one tablet every 6 hours as needed, polyethylene glycol 17 grams daily, Ranexa 500 mg once a day, sucralfate 1 gram 4 times a day, tamsulosin for Flomax 0.8 mg at bedtime, venlafaxine for Effexor 75 mg daily and Ambien 5 mg at bedtime. I did discontinue carisoprodol for soma. I discontinued his diazepam and his irbesartan should be 150 mg twice a day. We did interrogate his pacemaker and it seems to be functioning well and he will be discharged back to [facility] in [place] to continue with physical and occupational therapy. MEG GILLIS MD DR: FELIX/scooby JOB#: [id number] / [id number]
--- NOTE | 2018-11-26 03:43 | CONS ---
DATE OF CONSULTATION: 11/24/2018 REFERRING PHYSICIAN: Dr. Shagufta Lopez. REASON FOR CONSULTATION: Rule out stroke, status post fall. HISTORY OF PRESENT ILLNESS: This is a 68-year-old right-handed male who was admitted through Emergency Room after he presented with chief complaint of a fall. According to the patient, he was walking with a friend using [facility]. All of a sudden, the walker fall inappropriately and the patient tripped and fell forwards. He hit his head, but he did not lose consciousness. The patient denies any preceding symptoms like chest pain, shortness of breath or palpitation, dizziness, weakness or paresthesia. On arrival to Emergency Room, the patient was alert and oriented. His blood pressure was 151/75. Initial nonenhanced head CT scan revealed no evidence of acute intracranial process, but showed chronic small vessel ischemic changes. The patient has had permanent pacemaker placement, but recent interrogation revealed no evidence of cardiac arrhythmias. Currently, the patient denies headaches, visual disturbances, nausea, vomiting, dysarthria, dysphagia, weakness or paresthesia. PAST MEDICAL HISTORY: Significant for multiple strokes in the past. The patient stated he had 4 strokes status post pacemaker placement, hypertension, hyperlipidemia, major depressions, bipolar, chronic low back pain status post spinal stimulator implant and hypothyroidism. Clinically, he has history of GERD and obesity. PAST SURGICAL HISTORY: Significant for cataract extraction bilaterally and spinal cord stimulator placement and permanent pacemaker placement. FAMILY HISTORY: Noncontributory. SOCIAL HISTORY: The patient is . He lives with his ; however, his had recent hip surgery and he is a halfway facility resident. He is a smoker. He denies alcohol or illicit drug use. CURRENT MEDICATIONS: Tylenol, losartan 50 mg b.i.d., lamotrigine 200 mg at bedtime, albuterol inhaler, sucralfate 1 gram q.i.d., Pulmicort inhaler, Effexor 37.5 mg b.i.d., pantoprazole 40 mg p.o. daily, Proscar 5 mg daily, Zetia 10 mg p.o. daily, valproic acid 500 mg daily, donepezil 5 mg daily, carvedilol 6.25 mg b.i.d., Flomax 0.8 mg daily, Ranexa 500 mg p.o. daily, vitamin B12 1000 mcg p.o. daily and aspirin 81 mg daily. ALLERGIES: LISINOPRIL, MEMANTINE, AND PREDNISONE. REVIEW OF SYSTEMS: A 10-point review of system was performed as mentioned above in history of present illness. PHYSICAL EXAMINATION: GENERAL: Well-developed, well-nourished male, not in acute distress. He weighs 87.5 kilos. VITAL SIGNS: Blood pressure is 133/75, respiratory rate 20, pulse is 63, temperature 97.1, oxygen saturation 97% on room air. HEENT: Normocephalic, atraumatic, otherwise unremarkable. NECK: Supple. Negative for carotid bruit, lymphadenopathy or thyromegaly. LUNGS: Clear to A and P. CARDIOVASCULAR: Regular rate and rhythm, normal S1, S2. There is no S3, S4 or murmur. ABDOMEN: Soft. Bowel sounds positive. EXTREMITIES: Negative for cyanosis, clubbing or pitting edema. NEUROLOGICAL EXAM: Mental Status: The patient is alert and oriented x3. Speech is fluent. There is no language dysfunction. Memory, judgment, and abstracting thinking are fair. The patient denies hallucination or delusion. CRANIAL NERVES: Visual maciel are full. The pupils are reactive to light and accommodation. The extraocular movements are intact. There is no nystagmus. There is no facial motor or sensory deficit. Hearing is intact bilaterally. The palate is elevated symmetrically. Sternocleidomastoid muscles are powerful bilaterally. The patient shrugs his shoulders symmetrically, protrudes his tongue in the midline without fasciculation or atrophy. MOTOR: No focal muscle bulk was seen. The tone is normal. The strength is 5/5 throughout. SENSORY EXAMINATION: Revealed normal pinprick, light touch, vibratory and position senses. Deep tendon reflexes are symmetric and active with positive Babinski bilaterally. Gait not tested at this time. LABORATORY DATA: CBC revealed white blood cells of 6.8 thousand, hemoglobin 13.4, hematocrit 40, platelet count 200,000. Chemistry revealed sodium of 140, potassium 4, chloride 103, CO2 27, BUN 24, creatinine 1.5, glucose 81. Calcium is 9. Liver enzymes are normal. Troponin level is normal with elevated ____ at 130, normal TSH. Urinalysis is negative for urinary tract infections. Urine drug screen is positive for benzodiazepines and opiate. D-dimer is elevated at 0.65. DIAGNOSTIC DATA: Nonenhanced CT scan consistent with no acute intracranial process, but chronic small vessel ischemic changes and generalized atrophy and right posterior parietal encephalomalacia secondary to previous stroke. CT of the cervical spine revealed no acute fracture or subluxation, but shows multilevel degenerative disk disease and more severe at C6-C7. Venous Doppler study of the lower extremities revealed no evidence of DVTs. IMPRESSION: 1. Status post a fall while walking. According to the patient, he fell due to inappropriate folding of his walker; however, he denies any preceding symptoms suggestive of vertigo or cardiac arrhythmias. 2. Multiple medical problems includes numerous strokes in the past, hypertension, hyperlipidemia, chronic lower back pain and hypothyroidism. RECOMMENDATIONS: 1. Continue with current home medications including anticoagulants and aspirin. 2. Carotid Doppler study. 3. Physical therapy evaluation. M Hallie NUNEZ MD DR: ABNER/scooby JOB#: [id number] / [id number]
--- NOTE | 2018-11-26 03:49 | PN ---
DATE: 11/25/2018 SUBJECTIVE: The patient denies any new medical neurological complaints. He denies headaches, visual disturbances, nausea, vomiting, chest pain, shortness of breath or palpitation, dysarthria or dysphagia. OBJECTIVE: GENERAL: A well-developed, well-nourished male, not in acute distress. VITAL SIGNS: Blood pressure 103/54, respiratory rate 20, pulse rate 60 and regular, temperature 97.9, oxygen saturation 92% on room air. HEENT: Normocephalic, atraumatic, otherwise unremarkable. NECK: Supple. Negative for carotid bruit, lymphadenopathy or thyromegaly. LUNGS: Clear to A and P. CARDIOVASCULAR: Regular rate and rhythm, normal S1, S2. There is no S3, S4, or murmur. ABDOMEN: Soft. Bowel sounds positive. EXTREMITIES: Negative for cyanosis, clubbing or pitting edema. NEUROLOGICAL EXAM: Mental Status: The patient is alert and oriented x3. Speech is fluent. There is no language dysfunction. The patient recalls 2/3 immediately after 1 and 3 minutes. Judgment and abstract thinking are fair. The patient denies hallucination or delusion. Cranial nerves are grossly intact. No focal motor or sensory deficit. Deep tendon reflexes were symmetric and active without pathology responses. Gait not tested. LABORATORY DATA: CBC revealed white blood cells of 5.1, hemoglobin 12.5, hematocrit 37.4, platelet count 178,000. Chemistry revealed sodium of 142, potassium is 3.6, chloride 105, CO2 of 29, BUN 20, creatinine 1.2, glucose 74, and calcium 8.8. DIAGNOSTIC DATA: Carotid Doppler study revealed no evidence of significant carotid or internal carotid artery stenosis. IMPRESSION: 1. Status post a fall, etiology uncertain, questionable transient ischemic attack. However, the patient stated he was walking and his walker folded in inappropriately and resulted in a fall. He denies any preceding symptoms to suggest cardiac arrhythmias or vertigo. The patient is neurologically stable. 2. Multiple medical problems include previous strokes resulted in unsteady gait, required usage of a walker. 3. Multiple medical problems include hypertension, hyperlipidemia, hypothyroidism, status post permanent pacemaker placement and chronic lower back pain, required spinal cord stimulator placement. RECOMMENDATIONS: 1. Continue with current management and home medications. 2. Physical therapy evaluation. M Hallie NUNEZ MD DR: Kyree JOB#: [id number] / [id number]
== END 2018-11-25 17:55 | disposition home or self-care (01) ==
LOC: ER 01:51 → INTOOBSV 04:30 → 1 SOUTH 04:30
PROVIDERS: ADMIT Internal Medicine; ATTEND Internal Medicine
DX: R29.6 Repeated falls (principal); E03.9 Hypothyroidism, unspecified; J44.9 Chronic obstructive pulmonary disease, unspecified; F41.9 Anxiety disorder, unspecified; E78.00 Pure hypercholesterolemia, unspecified; I11.0 Hypertensive heart disease with heart failure; I50.9 Heart failure, unspecified; G81.94 Hemiplegia, unspecified affecting left nondominant side; K21.9 Gastro-esophageal reflux disease without esophagitis; M54.5 Low back pain; G89.29 Other chronic pain; Z98.42 Cataract extraction status, left eye; Z91.81 History of falling; Z98.41 Cataract extraction status, right eye; Z95.0 Presence of cardiac pacemaker; Z86.73 Personal history of transient ischemic attack (TIA), and cerebral infarction without residual deficits; Z91.19 Patient's noncompliance with other medical treatment and regimen; W01.0XXA Fall on same level from slipping, tripping and stumbling without subsequent striking against object, initial encounter; I25.10 Atherosclerotic heart disease of native coronary artery without angina pectoris; F17.200 Nicotine dependence, unspecified, uncomplicated; G47.33 Obstructive sleep apnea (adult) (pediatric); E78.5 Hyperlipidemia, unspecified; E11.51 Type 2 diabetes mellitus with diabetic peripheral angiopathy without gangrene; F03.90 Unspecified dementia, unspecified severity, without behavioral disturbance, psychotic disturbance, mood disturbance, and anxiety; R42 Dizziness and giddiness
CPT/HCPCS: 36415; 70450; 71045; 72125; 80048; 80061; 80076; 80307; 81001; 82550; 83690; 83735; 83880; 84443; 84484; 85025; 85379; 85610; 85730; 87641; 93005; 93880; 93970; 94640; 96360; 96361; 96372; 97110; 97116; 97162; 97166; 97535; 99284; G0378; J1650; J7120; J7613; J7626; G0379; 99285-25

== ENCOUNTER → 2018-12-31 | Outpatient (CLI) | payer OTHER ==
[~2018-12-31] MED LIST changes: +ALBU2.5V8 IH; +CARV6.253 PO; +CYAN100072 PO; +DEXL60CA2 PO; +DIVA250T14 PO; +DONE5TAB56 PO; +FINA5TAB4 PO; +GLYC1SUP61 RC; +IRBE300T3 PO; +OMEP40CA5 PO; +POLY17PO5 PO; +SUCR1TAB PO
--- NOTE | 2019-01-01 08:54 | RAD ---
EXAM: PA and lateral views of the right hand DATE: 12/31/2018 12:00 AM INDICATION: Right hand pain, fall COMPARISON: No Prior FINDINGS/ IMPRESSION: 1. No evidence of acute fracture or dislocation. If there is persistent clinical concern for fracture, follow-up radiographs in 10-14 days is recommended. 2. Soft tissue swelling about the right hand overlying the metacarpals. 3. Joint spaces are preserved without significant degenerative/proliferative change. 4. Decreased bone mineral density. Electronically signed by: Jean Callahan MD (01/01/2019 8:51 AM) [id number]
--- NOTE | 2019-01-01 09:00 | RAD ---
EXAM: AP, lateral and lumbosacral spot views with bilateral oblique views of the lumbar spine DATE: 12/31/2018 12:00 AM INDICATION: Low back pain, fall COMPARISON: CT 02/06/2018 FINDINGS: There are 5 nonrib-bearing lumbar-type vertebral bodies. Vertebral body heights are preserved. No definite fracture is seen. At least moderate disc height loss at all the levels except for moderate to severe disc height loss at L3-4 and L5-S1. Trace anterolisthesis of L4 on L5. On the oblique views, no definite pars defects are seen. Advanced facet degenerative changes at L1-2 and below. Iliac stents are seen. Leads are partially seen overlying the spinal canal. Moderate to large volume colonic stool content is seen. Cholecystectomy clips are seen in the right upper quadrant. IMPRESSION: 1. Multilevel spondylosis as above 2. Negative acute fracture 3. . Anterolisthesis of L4 on L5 Electronically signed by: Jean Callahan MD (01/01/2019 8:57 AM) [id number]
== END | disposition home or self-care (01) ==
LOC: PMG 16:41
PROVIDERS: ATTEND Physician Assistant
DX: M54.5 Low back pain (principal); M79.641 Pain in right hand
CPT/HCPCS: 72110; 73120

== ENCOUNTER 2019-05-11 20:33 | Emergency (ER) | payer MEDICARE, OTHER ==
[~2019-05-11] VITALS: Ht 170.2 cm; Wt 82.0 kg
[~2019-05-11 20:33] MED LIST changes: -EZET10TA18 PO; +EZET10TA20 PO; -LAMO200T2 PO; +LAMO200T6 PO; -NITR0.4T SL; +NITR0.4T24 SL; +OMEP40CA45 PO; -OMEP40CA5 PO; +SIMV20TA18 PO; -SIMV20TA3 PO
--- NOTE | 2019-05-11 21:45 | PHYS DOC ---
Past History Past Medical History: Anxiety, CAD, CHF, Constipation, COPD, Coagulopathy, Dementia, GERD, High Cholesterol, Hypertension, Pneumonia, Stroke, TIA, Other (JAIRO RHOADES DO) Past Surgical History: Cholecystectomy, Pacemaker, Other (JAIRO RHOADES DO) Smoking: Greater than 1 pack/day Alcohol Use: None Drug Use: None (JAIRO RHOADES DO) Adult General Chief Complaint Chief Complaint: SUICIDAL IDEATION HPI HPI Patient is a 69-year-old male presents after taking 4 nitroglycerin tablets as a suicide attempt. He took this approximately an hour prior to arrival. He was having no chest pain or palpitations. He took this because he is having multiple health issues. He denies any headache from the nitroglycerin. Denies any other coingestants. He reports not taking his usual medication for the past week.[] (JAIRO RHOADES DO) Review of Systems Review of Systems Constitutional: Denies fever or chills [] Eyes: Denies change in visual acuity, redness, or eye pain [] HENT: Denies nasal congestion or sore throat [] Respiratory: Denies cough or shortness of breath [] Cardiovascular: No chest pain or palpitations[] GI: Denies abdominal pain, nausea, vomiting, bloody stools or diarrhea [] : Denies dysuria or hematuria [] Musculoskeletal: Denies back pain or joint pain [] Integument: Denies rash or skin lesions [] Neurologic: Denies headache, focal weakness or sensory changes [] Endocrine: Denies polyuria or polydipsia [] All other systems were reviewed and found to be within normal limits, except as documented in this note. (JAIRO RHOADES DO) Allergies Allergies Allergies Coded Allergies Type Severity Reaction Last Updated Verified memantine Allergy Intermediate 11/25/18 Yes prednisone Allergy Intermediate "Goes crazy." 09/22/13 Yes lisinopril Adverse Reaction Intermediate COUGH 11/13/15 Yes (JAIRO RHOADES DO) Physical Exam Physical Exam Constitutional: Well developed, well nourished, no acute distress, non-toxic appearance. [] HENT: Normocephalic, atraumatic, bilateral external ears normal, oropharynx moist, no oral exudates, nose normal. [] Eyes: PERRLA, EOMI, conjunctiva normal, no discharge. [] Neck: Normal range of motion, no tenderness, supple, no stridor. [] Cardiovascular:Heart rate regular rhythm, no murmur [] Lungs & Thorax: Bilateral breath sounds clear to auscultation [] Abdomen: Bowel sounds normal, soft, no tenderness, no masses, no pulsatile masses. [] Skin: Warm, dry, no erythema, no rash. [] Back: No tenderness, no CVA tenderness. [] Extremities: No tenderness, no cyanosis, no clubbing, ROM intact, no edema. [] Neurologic: Alert and oriented X 3, normal motor function, normal sensory function, no focal deficits noted. [] Psychologic: Affect flat, mood normal. Positive suicidal ideation, no homicidal ideation, no hallucinations [] (JAIRO RHOADES DO) Current Patient Data Vital Signs Vital Signs Date Time Temp Pulse Resp B/P (MAP) Pulse Ox O2 Delivery O2 Flow Rate FiO2 05/11/19 20:33 97.9 86 16 100 Room Air (JAIRO RHOADES DO) EKG EKG EKG shows a sinus rhythm at 60 bpm, left axis, QTC of 396 ms, no ST elevation. No terminal 40 ms QRS prolongation lead aVR. Interpreted by me at 2155[] (JAIRO RHOADES DO) Course & Med Decision Making Course & Med Decision Making Pertinent Labs and Imaging studies reviewed. (See chart for details) Emergency department course: Patient arrived by EMS, was placed in bed, and tolerated exam well. After return of the laboratory studies, he was determined to be medically clear for mental health evaluation and treatment. He was not very communicative with the mental health personnel. At approximately midnight, he decided that he was going to go home. He was instructed this was not a good idea. That he was not appropriate for going home because of his attempt earlier today at self-harm. He became belligerent. He had to be temporarily restrained and have 5 mg of Haldol administered intramuscularly. At approximately that time mental health team called back and said he was appropriate for [facility] or involuntary commitment. Attempts were made at placement. Patient care was endorsed to the daytime physician at 6 AM with ultimate disposition pending. Medical decision makin-year-old gentleman with suicide attempt tonight as well as behavioral issues, not taking his medicines for the past week.[] (JAIRO RHOADES DO) Course & Med Decision Making Care assumed from previous provider. Numerous attempts were made to place this patient at local psychiatric facilities. dust box worker was requested to assist with this patient. Patient is unwilling to go voluntarily and does not have court ordered guardianship authorizing medical power of deputy attorney general to the patient admitted against his will. The patient states he is no longer suicidal and is requesting discharge home at his request. Patient is alert and oriented 3 at time of discharge. (ADAM NELA DO) Dragon Disclaimer Dragon Disclaimer This electronic medical record was generated, in whole or in part, using a voice recognition dictation system. (JAIRO RHOADES DO) Departure Departure: Impression: Primary Impression: Suicide attempt Disposition: 07 AGAINST MEDICAL ADVICE Condition: GUARDED Referrals: MEG GILLIS MD (PCP) JAIRO RHOADES DO May 11, 2019 21:45 ADAM NEAL DO May 12, 2019 15:35
[2019-05-11 22:07] LABS: BASO # 0.1 x10^3/uL (0.0-0.2); BASO % 1 % (0-3); EOS # 0.2 x10^3/uL (0.0-0.7); EOS % 2 % (0-3); HEMATOCRIT 44.1 % (39.0-53.0); HEMOGLOBIN 14.7 g/dL (13.0-17.5); LYMPH # 1.7 x10^3/uL (1.0-4.8); LYMPH % 26 % (24-48); MEAN CORPUSCULAR HEMOGLOBIN 30 pg (25-35); MEAN CORPUSCULAR HGB CONC 33 g/dL (31-37); MEAN CORPUSCULAR VOLUME 89 fL (79-100); MONO # 0.6 x10^3/uL (0.0-1.1); MONO % 9 % (0-9); NEUT # 4.1 x10^3uL (1.8-7.7); NEUT % 62 % (31-73); PLATELET COUNT 206 x10^3/uL (140-400); RED BLOOD COUNT 4.94 x10^6/uL (4.30-5.70); RED CELL DISTRIBUTION WIDTH 13.3 % (11.5-14.5); WHITE BLOOD COUNT 6.7 x10^3/uL (4.0-11.0)
[2019-05-11 22:18] LABS: SALIC 1.6 mg/dL (2.8-20.0)
[2019-05-11 22:19] LABS: ACETAMIN < 2.0 mcg/mL (10-30); ETHANOL < 10 mg/dL (0-10)
[2019-05-11 22:21] LABS: ALBUMIN 3.3 g/dL (3.4-5.0); ALBUMIN/GLOBULIN RATIO 0.9 (1.0-1.7); CALCIUM 8.6 mg/dL (8.5-10.1); CREATININE 1.1 mg/dL (0.7-1.3); GFR 66.4; POTASSIUM 4.1 mmol/L (3.5-5.1); TOTAL BILIRUBIN 0.3 mg/dL (0.2-1.0); TOTAL PROTEIN 7.1 g/dL (6.4-8.2)
[2019-05-11 22:26] LABS: VAL ACID < 3 mcg/mL (50-100)
[2019-05-11 23:20] LABS: BACTERIA,URINE FEW /HPF (0-FEW); BILIRUBIN,URINE NEG (NEG); CLARITY,URINE CLEAR; COLOR,URINE YELLOW; GLUCOSE,URINE NEG (NEG); NITRITE,URINE NEG (NEG); SQUAMOUS EPITHELIAL CELL,UR OCC /LPF; UROBILINOGEN,URINE 0.2 mg/dL (0.2 mg/dL); WBC,URINE RARE /HPF (0-4)
[2019-05-11 23:23] LABS: AMPHETAMINE/METHAMPHETAMINE NEG (NEG); BARBITURATES NEG (NEG); BENZODIAZEPINES POS (NEG); CANNABINOIDS NEG (NEG); COCAINE NEG (NEG); METHADONE NEG (NEG); OPIATES NEG (NEG); PHENCYCLIDINE NEG (NEG)
[2019-05-12] MEDS ORDERED: HALOPERIDOL LACT 5 MG/ML VIAL. IM ONE (00:30)
[2019-05-12] MEDS ORDERED: IBUPROFEN 600 MG TABLET. PO ONE (13:45)
[2019-05-12 16:28] VITALS: BP 154/81
== END 2019-05-12 17:05 | disposition left against medical advice (07) ==
LOC: ER 20:33
DX: R45.851 Suicidal ideations (principal); F41.9 Anxiety disorder, unspecified; I25.10 Atherosclerotic heart disease of native coronary artery without angina pectoris; I11.0 Hypertensive heart disease with heart failure; I50.9 Heart failure, unspecified; J44.9 Chronic obstructive pulmonary disease, unspecified; K21.9 Gastro-esophageal reflux disease without esophagitis; E78.00 Pure hypercholesterolemia, unspecified; F03.90 Unspecified dementia, unspecified severity, without behavioral disturbance, psychotic disturbance, mood disturbance, and anxiety; F17.200 Nicotine dependence, unspecified, uncomplicated; Z86.73 Personal history of transient ischemic attack (TIA), and cerebral infarction without residual deficits; Z95.0 Presence of cardiac pacemaker; Z88.8 Allergy status to other drugs, medicaments and biological substances
CPT/HCPCS: 36415; 80053; 80164; 80307; 80329; 81001; 83735; 85025; 96372; 99284; G0480; J1630; 82003

== ENCOUNTER 2019-07-04 07:48 | Emergency (ER) | payer MEDICARE, MEDICAID ==
[~2019-07-04] VITALS: Ht 170.2 cm; Wt 80.1 kg
[2019-07-04 07:48] VITALS: BP 117/54
[~2019-07-04 07:48] MED LIST changes: +IRBE300T23 PO; -IRBE300T3 PO; +MORP20SY PO
--- NOTE | 2019-07-04 08:00 | PHYS DOC ---
Past History Past Medical History: Anxiety, CAD, CHF, Constipation, COPD, Coagulopathy, Dementia, GERD, High Cholesterol, Hypertension, Pneumonia, Stroke, TIA, Other Past Surgical History: Cholecystectomy, Pacemaker, Other Smoking: Greater than 1 pack/day Alcohol Use: None Drug Use: None Adult General Chief Complaint Chief Complaint: MECHANICAL FALL HPI HPI Patient is a 69-year-old male who is currently on hospice secondary to a stroke as read by EMS due to a fall out of bed just prior to arrival. EMS believes the fall was witnessed by family. Patient reportedly climbed over the railing and fell approximately 2 feet to the ground. There was no reported loss of consciousness. The patient has chronic neck pain and has a back stimulator and the patient is able to tell me that he does not feel as though he has new pain. Family was concerned about the patient's hips. He does have an indwelling Rai catheter. He denies extremity pain otherwise. Review of Systems Review of Systems All other ROS is negative unless otherwise stated in HPI Allergies Allergies Allergies Coded Allergies Type Severity Reaction Last Updated Verified memantine Allergy Intermediate 05/11/19 Yes prednisone Allergy Intermediate "Goes crazy." 05/11/19 Yes lisinopril Adverse Reaction Intermediate COUGH 05/11/19 Yes Physical Exam Physical Exam See above Constitutional: Well developed, well nourished, lying in bed HENT: Normocephalic, atraumatic, bilateral external ears normal, oropharynx moist, no oral exudates, nose normal. [] Eyes: PERRLA, EOMI, conjunctiva normal, no discharge. [] Neck: Range of motion intact without midline tenderness. Complains of chronic pain Cardiovascular:Heart rate regular rhythm, no murmur [] Lungs & Thorax: Bilateral breath sounds Abdomen: Bowel sounds normal, soft, no tenderness, no masses, no pulsatile masses. [] Skin: Warm, dry, no erythema, no rash. [] Back: No step-offs or deformities noted Extremities: No tenderness, no cyanosis, no clubbing, no deformities noted Neurologic: No new neurologic deficits noted EKG EKG [] Radiology/Procedures Radiology/Procedures EXAM: CT Head without IV contrast INDICATION: Fall TECHNIQUE: Multi-detector row CT images were obtained of the head without the use of IV contrast. All CT scans performed at this facility utilize dose optimization techniques as appropriate to the exam, including the following: Automated exposure control and adjustment of the mA and/or KV according to patient size (this includes techniques or standardized protocols for targeted exams where dose is indication/reason for exam). COMPARISON: Noncontrast head CT of 03/28/2018 FINDINGS: BRAIN PARENCHYMA: No evidence of acute intraparenchymal hemorrhage or infarct. As parenchymal volume loss and white matter low density compatible chronic ischemic microvascular change is redemonstrated along with a chronic appearing infarct in the posterior right frontal lobe. VENTRICLES & EXTRA-AXIAL SPACES: Ventricles are within normal limits. Basilar cisterns are patent. No pathologic extra-axial fluid collection or mass. ORBITS: Orbital contents are unremarkable. SINUSES: Visualized paranasal sinuses and mastoid air cells are clear. OSSEOUS & SOFT TISSUES: Calvarium and skull base are intact. IMPRESSION: No acute intracranial pathology. EXAM: CT Cervical Spine without IV contrast INDICATION: Fall. TECHNIQUE: Multi-detector row CT images were obtained through the cervical spine without the use of IV contrast. Post-processing sagittal and coronal reconstructed images were obtained for interpretation. All CT scans performed at this facility utilize dose optimization techniques as appropriate to the exam, including the following: Automated exposure control and adjustment of the mA and/or KV according to patient size (this includes techniques or standardized protocols for targeted exams where dose is indication/reason for exam). COMPARISON: None FINDINGS: CRANIOCERVICAL JUNCTION: Unremarkable. ALIGNMENT: Alignment is within normal limits with mild straightening of the cervical spine in flexion.. OSSEOUS: No evidence of fracture or bone destruction. DISC SPACES: Mild multilevel disc degenerative change with endplate osteophytic spurring and disc space narrowing. FACET JOINTS: Unremarkable. SPINAL CANAL: Unremarkable. NEUROFORAMINA: Bilateral mild foraminal narrowing at multiple levels due to uncovertebral hypertrophy is present. SOFT TISSUES: Bilateral carotid bulb calcifications. Calcifications in the right partial tonsil, potentially reflecting prior tonsillitis. Left chest pacemaker. IMPRESSION: No acute traumatic findings in the cervical spine. Electronically signed by: Chente Avalos MD (07/04/2019 8:43 AM) [facility][] Examination: AP pelvis single view INDICATION: Fall. FINDINGS: Pelvic ring is intact. Hips appear well seated and no fractures are identified on the single AP view of the hips which are externally rotated, obscuring the femoral necks. Degenerative changes in the lower lumbar spine are present. A left abdominal spinal stimulator generator is present with electrodes coursing up the lumbar spine and beyond the [id number]. There are bilateral iliac artery stents. The soft tissues are otherwise unremarkable. IMPRESSION: No fracture or dislocation in the pelvis or the visualized hips on this single portable AP view . Electronically signed by: Chente Avalos MD (07/04/2019 8:46 AM) [facility] Course & Med Decision Making Course & Med Decision Making Pertinent Labs and Imaging studies reviewed. (See chart for details) Patient seen for a fall out of bed that was possibly witnessed without loss of consciousness. Given unknown history I will go ahead and get a CT scan of the patient's head and C-spine and x-ray his pelvis. He declines pain elsewhere and there is no report of further injury or concern by family through EMS. Differential diagnosis at this time includes new intracranial injury, cervical spine injury, chronic pain, pelvic injury. Imaging negative. Will d/c. F/u as needed. Dragon Disclaimer Dragon Disclaimer This electronic medical record was generated, in whole or in part, using a voice recognition dictation system. Departure Departure: Impression: Primary Impression: Accidental fall from bed Additional Impression: Chronic neck and back pain Disposition: HOME, SELF-CARE Condition: STABLE Referrals: MEG GILLIS MD (PCP) Patient Instructions: Fall Prevention and Home Safety Additional Instructions: Follow up with your doctor for ongoing symptoms. Problem Qualifiers BEATRICE GARCIA DO Jul 04, 2019 07:59
--- NOTE | 2019-07-04 08:46 | RAD ---
EXAM: CT Head without IV contrast INDICATION: Fall TECHNIQUE: Multi-detector row CT images were obtained of the head without the use of IV contrast. All CT scans performed at this facility utilize dose optimization techniques as appropriate to the exam, including the following: Automated exposure control and adjustment of the mA and/or KV according to patient size (this includes techniques or standardized protocols for targeted exams where dose is indication/reason for exam). COMPARISON: Noncontrast head CT of 03/28/2018 FINDINGS: BRAIN PARENCHYMA: No evidence of acute intraparenchymal hemorrhage or infarct. As parenchymal volume loss and white matter low density compatible chronic ischemic microvascular change is redemonstrated along with a chronic appearing infarct in the posterior right frontal lobe. VENTRICLES & EXTRA-AXIAL SPACES: Ventricles are within normal limits. Basilar cisterns are patent. No pathologic extra-axial fluid collection or mass. ORBITS: Orbital contents are unremarkable. SINUSES: Visualized paranasal sinuses and mastoid air cells are clear. OSSEOUS & SOFT TISSUES: Calvarium and skull base are intact. IMPRESSION: No acute intracranial pathology. EXAM: CT Cervical Spine without IV contrast INDICATION: Fall. TECHNIQUE: Multi-detector row CT images were obtained through the cervical spine without the use of IV contrast. Post-processing sagittal and coronal reconstructed images were obtained for interpretation. All CT scans performed at this facility utilize dose optimization techniques as appropriate to the exam, including the following: Automated exposure control and adjustment of the mA and/or KV according to patient size (this includes techniques or standardized protocols for targeted exams where dose is indication/reason for exam). COMPARISON: None FINDINGS: CRANIOCERVICAL JUNCTION: Unremarkable. ALIGNMENT: Alignment is within normal limits with mild straightening of the cervical spine in flexion.. OSSEOUS: No evidence of fracture or bone destruction. DISC SPACES: Mild multilevel disc degenerative change with endplate osteophytic spurring and disc space narrowing. FACET JOINTS: Unremarkable. SPINAL CANAL: Unremarkable. NEUROFORAMINA: Bilateral mild foraminal narrowing at multiple levels due to uncovertebral hypertrophy is present. SOFT TISSUES: Bilateral carotid bulb calcifications. Calcifications in the right partial tonsil, potentially reflecting prior tonsillitis. Left chest pacemaker. IMPRESSION: No acute traumatic findings in the cervical spine. Electronically signed by: Chente Avalos MD (07/04/2019 8:43 AM) [facility]
--- NOTE | 2019-07-04 08:49 | RAD ---
Examination: AP pelvis single view INDICATION: Fall. FINDINGS: Pelvic ring is intact. Hips appear well seated and no fractures are identified on the single AP view of the hips which are externally rotated, obscuring the femoral necks. Degenerative changes in the lower lumbar spine are present. A left abdominal spinal stimulator generator is present with electrodes coursing up the lumbar spine and beyond the [id number]. There are bilateral iliac artery stents. The soft tissues are otherwise unremarkable. IMPRESSION: No fracture or dislocation in the pelvis or the visualized hips on this single portable AP view . Electronically signed by: Chente Avalos MD (07/04/2019 8:46 AM) [facility]
== END 2019-07-04 09:00 | disposition home or self-care (01) ==
LOC: ER 07:48
DX: G89.29 Other chronic pain (principal); M54.2 Cervicalgia; M54.9 Dorsalgia, unspecified; I25.10 Atherosclerotic heart disease of native coronary artery without angina pectoris; I11.0 Hypertensive heart disease with heart failure; I50.9 Heart failure, unspecified; J44.9 Chronic obstructive pulmonary disease, unspecified; K21.9 Gastro-esophageal reflux disease without esophagitis; E78.5 Hyperlipidemia, unspecified; F17.210 Nicotine dependence, cigarettes, uncomplicated; Z90.49 Acquired absence of other specified parts of digestive tract; Z95.0 Presence of cardiac pacemaker; Z86.73 Personal history of transient ischemic attack (TIA), and cerebral infarction without residual deficits; Z88.8 Allergy status to other drugs, medicaments and biological substances; W06.XXXA Fall from bed, initial encounter; Y93.89 Activity, other specified; Y92.89 Other specified places as the place of occurrence of the external cause; Y99.8 Other external cause status
CPT/HCPCS: 70450; 72125; 72170; 99284